=== PATIENT | male | born 1955 | race Caucasian/White ===

== ENCOUNTER 2016-06-15 12:55 | Outpatient (CLI) | payer OTHER | END 2016-06-15 12:56 | disposition home or self-care (01) | DX: M47.812 Spondylosis without myelopathy or radiculopathy, cervical region (principal); M50.81 Other cervical disc disorders, high cervical region ==

== ENCOUNTER 2017-04-29 16:32 | Outpatient (CLI) | payer OTHER ==
--- NOTE | 2017-04-30 16:56 | MRI Report ---
EXAM: MRI LUMBAR SPINE WITHOUT CONTRAST EXAM DATE: 04/29/2017 04:45 PM. CLINICAL HISTORY: Left thigh and hip pain. Left knee numbness. Left leg weakness. Lumbar spine pain. Previous lumbar spine surgery 9 years ago. COMPARISON: None. TECHNIQUE: Multiplanar, multisequence T1-weighted and fluid-sensitive sequences of the lumbar spine f rom T12 to S1 without contrast. Other: None. FINDINGS: Spinal Cord: The conus terminates at mid L1. The conus medullaris and cauda equina are unremarkable. Alignment: Grade 1 retrolisthesis at L3-L4 by approximately 5 mm. Mild levoconvex scoliosis centered at the L4-L5 level. Bone Marrow: Five wpd-jym-wgxuhsb lumbar vertebral bodies are assumed. There is an approximately 8 x 5 mm hypointense lesion at the right side of the S1 sacral segment which most likely represents a bon e island. No gross fractures. Disk Levels/Facets: L5-S1: Minimal disk bulge. Posterior annular fissure. Moderate facet arthropathy. Mild to moderate le ft subarticular zone stenosis. No foraminal stenoses. L4-L5: Right-sided degenerative endplate changes. Mild left-sided and moderate to severe right-sided disk space narrowing. Small diffuse disk bulge. Previous laminectomy. Mild to moderate right facet ar thropathy. Mild left and rpkl-hn-rzmvtvli right foraminal stenoses. L3-L4: Small posterior disk bulge. Small left foraminal and extraforaminal disk protrusion. Mild face t arthropathy. Small facet joint effusions. Moderate foraminal stenoses. L2-L3: Unremarkable. L1-L2 and T12-L1: Unremarkable. Musculature: Normal. No edema or fatty atrophy. Other: There is a 2.2 x 1.8 cm cyst at the right kidney. IMPRESSION: 1. Multilevel degenerative disk changes, osteophytosis, and facet arthropathy. The more significant l evels are at L3-L4 and L4-L5. 2. Small posterior disk bulge and small left foraminal and extraforaminal disk protrusion at L3-L4. M oderate foraminal stenoses. 3. Small diffuse disk bulge at L4-L5. Previous laminectomy. Mild left and kdtc-ho-wuytngrf right fora karrie stenoses. 4. Grade 1 retrolisthesis at L3-L4. Mild levoconvex scoliosis of the lower lumbar spine. Comment: The following findings are so common in adults without low back pain that while we report th eir presence, they must be interpreted with caution and in the context of the clinical situation. (Re lisa Carmona et al, Spine 2001) Prevalence of findings in patients without low back pain: Disk degeneration (any evidence): 92% Disk desiccation/T2 signal loss: 83% Disk height loss: 56% Disk bulge: 64% Disk protrusion: 32% Annular tear/high intensity zone: 38% [facility] Referring Provider Line: [phone] SITE ID: [id number]
== END 2017-04-29 16:33 | disposition home or self-care (01) ==
LOC: DI 16:32
PROVIDERS: ATTEND Physical Medicine & Rehabilitation
DX: M51.26 Other intervertebral disc displacement, lumbar region (principal); M47.896 Other spondylosis, lumbar region; M51.36 Other intervertebral disc degeneration, lumbar region; M43.16 Spondylolisthesis, lumbar region; M41.86 Other forms of scoliosis, lumbar region
CPT/HCPCS: 72148

== ENCOUNTER 2018-06-13 10:38 | Outpatient (CLI) | payer OTHER | END 2018-06-13 10:39 | disposition home or self-care (01) | LOC: SC 10:38 | PROVIDERS: ATTEND Internal Medicine Pulmonary Disease | DX: G47.33 Obstructive sleep apnea (adult) (pediatric) (principal); E66.9 Obesity, unspecified; Z68.34 Body mass index [BMI] 34.0-34.9, adult | CPT/HCPCS: 99203; 99212 ==

== ENCOUNTER 2018-07-24 08:12 | Emergency (ER) | payer OTHER ==
--- NOTE | 2018-07-24 08:39 | ED Physician Documentation ---
PD HPI UPPER EXT INJURY - Stated complaint Stated Complaint: L MID FINGER INJ - History obtained from History obtained from: Patient - History of Present Illness Location: Left, Finger (he was lifting heavy object and had middle finger at a corner, and felt a pain while lifting. So finger was being pressured/bent at the time, in flexion position.) Timing - onset: Yesterday Worsened by: Moving, Palpating Associated symptoms: No: Weakness (he can flex and extend, just hurts with movement.) Similar symptoms before: Has not had sx before Review of Systems Skin: denies: Abrasion (s), Laceration (s) Neurologic: denies: Focal weakness, Numbness PD PAST MEDICAL HISTORY - Past Medical History Cardiovascular: Hypertension, High cholesterol Respiratory: COPD, Sleep apnea, CPAP use Endocrine/Autoimmune: None GI: GERD : None HEENT: None Psych: None Musculoskeletal: Osteoarthritis Derm: None - Past Surgical History Ortho: Spine surgery - Present Medications Home Medications: Ambulatory Orders Medication Instructions Recorded Confirmed Albuterol Sulfate [Proair Hfa 1 - 2 puffs INH Q4H PRN 06/03/17 06/03/17 Inhaler] Amlodipine Besylate 10 mg PO DAILY 06/03/17 06/03/17 Budesonide/Formoterol Fumarate 2 puffs IH ONCE 06/03/17 06/03/17 [Symbicort 160-4.5 Mcg Inhaler] Desmopressin Acetate 0.1 mg PO DAILY 06/03/17 06/03/17 Hydrocortisone 1 tab ORAL DAILY 06/03/17 06/03/17 Levothyroxine Sodium 1 tab ORAL DAILY 06/03/17 06/03/17 Lisinopril 40 mg PO DAILY 06/03/17 06/03/17 Meloxicam 1 tab ORAL DAILY 06/03/17 06/03/17 Omeprazole 1 tab ORAL DAILY 06/03/17 06/03/17 Simvastatin 20 mg PO DAILY 06/03/17 06/03/17 Tiotropium [place] [Spiriva] 1 inhaler IH DAILY 06/03/17 06/03/17 - Allergies Allergies/Adverse Reactions: Allergies Allergy/AdvReac Type Severity Reaction Status Date / Time latex Allergy Rash Verified 06/03/17 12:17 PD ED PE NORMAL - Vitals Vital signs reviewed: Yes - General General: Alert and oriented X 3, No acute distress, Well developed/nourished - Derm Derm: Normal color - Extremities Extremities: Other (left middle finger finger at the MCP joint with some swelling and tenderness palmar aspect. He is able to flex at IP joints. ) - Neuro Neuro: No motor deficit, No sensory deficit Results - Vitals Vitals: Oxygen O2 Source Room air - Rads (name of study) fingers Radiology: Prelim report reviewed (no fractures) PD MEDICAL DECISION MAKING - ED course Complexity details: reviewed results (xrays without fracture), considered differential, d/w patient Departure - Departure Disposition: 01 Home, Self Care Clinical Impression: Finger sprain Qualifiers: Encounter type: initial encounter Finger: middle finger Sprain of finger site: metacarpophalangeal joint Laterality: left Qualified Code(s): S63.653A - Sprain of metacarpophalangeal joint of left middle finger, initial encounter Condition: Stable Record reviewed to determine appropriate education?: Yes Instructions: ED Sprain Finger Follow-Up: Amy García ARNP [Primary Care Provider] - Comments: No fracture seen on x-ray. Presume it some sprain of the tendons and ligaments. I have use the finger splint for comfort over the next several days. Tylenol ibuprofen or Aleve if needed for pains. Elevate and rest the hand often to reduce the swelling. Recheck if not better over the next 3-5 days. Discharge Date/Time: 07/24/18 10:00
[2018-07-24 08:41] VITALS: BP 142/82
--- NOTE | 2018-07-24 10:10 | XRAY Report ---
Reason: LMF injury / attn MP joint Procedure Date: 07/24/2018 Accession Number: [id number] / [id number] Procedure: XR - Hand 2 View LT CPT Code: FULL RESULT: EXAM: LEFT HAND RADIOGRAPHY EXAM DATE: 07/24/2018 09:17 AM. CLINICAL HISTORY: LMF injury / attn MP joint. COMPARISON: None. TECHNIQUE: AP and lateral views of the left hand, oblique view of the left third digit. FINDINGS: Bones: No fractures or bone lesions. Joints: Unremarkable. Soft Tissues: Unremarkable. IMPRESSION: 1. No acute osseous abnormality. [facility]
== END 2018-07-24 10:00 | disposition home or self-care (01) ==
LOC: ED 08:12
DX: I10 Essential (primary) hypertension (principal); J44.9 Chronic obstructive pulmonary disease, unspecified; S63.653A Sprain of metacarpophalangeal joint of left middle finger, initial encounter; X50.1XXA Overexertion from prolonged static or awkward postures, initial encounter; X50.9XXA Other and unspecified overexertion or strenuous movements or postures, initial encounter; X50.0XXA Overexertion from strenuous movement or load, initial encounter; Y93.89 Activity, other specified
CPT/HCPCS: 99283

== ENCOUNTER 2018-07-25 09:03 | Outpatient (CLI) | payer OTHER | END 2018-07-25 09:04 | disposition home or self-care (01) | LOC: SC 09:03 | PROVIDERS: ATTEND Internal Medicine Pulmonary Disease | DX: G47.33 Obstructive sleep apnea (adult) (pediatric) (principal) | CPT/HCPCS: 99212; 99213 ==

== ENCOUNTER 2019-07-12 10:30 | Outpatient (CLI) | payer OTHER ==
[2019-07-14 18:12] VITALS: BP 130/60
--- NOTE | 2019-07-14 18:12 | SLEEP CARE CONSULTATION ---
Information from patient questionnaire entered by Susy Hector. I have reviewed and concur with the information entered by Susy Hector. This document represents the service I personally performed and the decisions made by me, Amy Jacobo, RN, MSN, WASHING MACHINE STRIPER. History of Present Illness Previous diagnosis: Moderate, Obstructive Sleep Apnea-Hypopnea Syndrome AHI: 13 Reason for follow up: annual (last seen 2019) Equipment type: CPAP Equipment obtained from: [employer] Mask style: Full face (Air Fit) Mask brand: Resmed Backup mask available: Yes (old mask ) CPAP Compliance Data - Data Reviewed with Patient Average duration of nightly device use: 8.1 Compliance rate %: 98 (180 days) Current pressure setting (cmH2O): 14-18 Humidity settin Average residual AHI: 1.7 Average large leak: 1.3 liters per minute Subjective Patient concerns: reports: nasal congestion, other (wakes with hose around neck most nights - which wakes him to readjust). denies: aerophagia, mask discomfort, air blowing in eyes, mask leak noise, condensation in mask/hose, dry mouth, nose, throat, epistaxis Observed to snore while using device: Yes (slightly) Current pressure setting perceived as: too high (occasionally causing chest discomfort- relieved with inhaler - last time a few months ago) On therapy, patient: reports: sleeping better, awakening more refreshed, being more awake and alert during the day, more rested overall. denies: drowsiness while driving Initial [place] Sleepiness Scale score: 9 Current [place] Sleepiness Scale score: 14 (increased fatigue from 24/7 hospice care of mother in law) Allergies and Home Medications Known drug allergies: Yes (latex , environmental) Home medication list reviewed: Yes (reduced dose of citalopram ) Allergy and home medication list: Medication List Medication Name (generic/name brand) Strength & Dosage Symbicort 160/4.5 Two puffs twice daily Spiriva HandiHaler One puff in the morning Proair HFA Use as needed Gabapentin 300mg cap one three times daily Citalopram Hydrobromide 10mg tab one daily Thyroxine 100mcg tab one daily Hydrocortisone 20mg tab one am and at lunch Testosterone Injection 250mg once every three weeks Desmopressin Acet 0.1mg tab two twice daily Lisinopril 40mg tab one daily Amlodipine 10mg tab one daily Simvastatin 20mg tab one daily at bedtime Omeprazole 20mg cap one twice daily before meals Vitamin D3 2000IU tab daily Vitamin B-12 2500mcg tab one daily Review of Systems Review of systems same as previous: Yes Physical Exam Blood Pressure: 130/60 Cuff size: long Heart Rate: 85 O2 Saturation: 98 Height: 5 ft 8.5 in Weight: 235 lb Body Mass Index: 35.2 BMI Classification: Obese Impression and Plan 1. Obstructive Sleep Apnea-Hypopnea Syndrome, moderate, with good treatment compliance and good apnea control. On CPAP therapy, the patient has better sleep quality and is more rested overall. For comfort of air pressure, I will slightly reduce the top setting of his CPAP range to reduce incidence of chest pressure when at higher setting to [id number]. He is to contact me if pressure change insufficient or uncomfortable. Patient reluctant to reduce pressure initially after explanation of goal is to reduce apnea comfortably, he agreed. Methods to keep hose out of way to sleep discussed. One method is to place the hose behind pillow or over headboard of bed. There is also a hose palmer pole that can be placed under the mattress and bought online. Patient has maintained weight. Currently patients BMI is 34.4 obesity class . Obesity increases the risk of apnea, CPAP pressure requirements and overall health risks especially cardiovascular and diabetes. Thus patient is advised to consider to lose weight. Weight loss can be done with reducing portion size, reducing refined foods and balancing content with vegetables, fruit and protein. In addition tracking food intake will allow awareness of how to modify diet to achieve weight loss goals. Also eating more slowly will allow more awareness of food intake and enjoyment of food while assisting patient to modify intake at each meal. A diet consultation can be helpful in achieving optimal weight loss goals. The BMI chart was reviewed. The patient would like to reduce to 165 pounds bringing their BMI down to about 24.7. Patient encouraged to discuss their weight loss goals with their PCP and consider a referral to a optical designer. The patient's CPAP pressure range should accommodate some weight loss. Symptoms to report for additional pressure adjustment discussed. Patient's apnea severity and rationale for treatment to reduce apnea, improve sleep quality and reduce cardiovascular and cerebrovascular events was reviewed. I also reviewed the benefit of consistent device use of CPAP for hypertension, gastric reflux, depression/anxiety . * * Change CPAP pressure to 14-17 cmH2O * consider hose palmer * Notify me if snoring with mask or feeling that the pressure is too much or too little * Attempt to lose weight * Call this office if any problems using CPAP * Return for follow up in 2 months to meet his Medicare eligibility , or sooner if concerns arise Counseling Topics: Spare mask, Weight loss health impact, Discuss weight with PCP Time Spent with Patient (minutes): 30 I spent 100% of this visit face to face with the patient with greater than 50% of this was spent time counseling the patient and coordination of care.
== END 2019-07-12 10:31 | disposition home or self-care (01) ==
LOC: SC 10:30
PROVIDERS: ATTEND Nurse Practitioner Family
DX: G47.33 Obstructive sleep apnea (adult) (pediatric) (principal); E66.9 Obesity, unspecified; Z68.35 Body mass index [BMI] 35.0-35.9, adult
CPT/HCPCS: 99212; 99214

== ENCOUNTER 2019-08-28 12:54 | Outpatient (CLI) | payer MEDICARE, OTHER ==
--- NOTE | 2019-08-28 09:25 | SLEEP CARE CONSULTATION ---
Information from patient questionnaire entered by Lauren Lennon. I have reviewed and concur with the information entered by Lauren Lennon. This document represents the service I personally performed and the decisions made by me, Amy Jacobo, RN, MSN, LABORER ADJUSTABLE STEEL JOIST. History of Present Illness Previous diagnosis: Moderate, Obstructive Sleep Apnea-Hypopnea Syndrome AHI: 13 Reason for follow up: first compliance, other (since transition to Medicare - diagnosed in 2005 - last device updated in 2019 ) Equipment type: CPAP Equipment obtained from: [facility] Mask style: Full face Backup mask available: Yes Last cushion change: 3 days ago Prior sleep studies: Yes CPAP Compliance Data - Data Reviewed with Patient Average duration of nightly device use: 8h 27m Compliance rate %: 98 Current pressure setting (cmH2O): 14-18 Average residual AHI: 1.2 (at 95th percentile pressure of 16.9) Subjective Patient concerns: reports: air blowing in eyes (noted only when needs to change mask ), mask leak noise. denies: aerophagia, mask discomfort, condensation in mask/hose, nasal congestion, dry mouth, nose, throat, epistaxis Observed to snore while using device: Yes (slight ) Current pressure setting perceived as: comfortable On therapy, patient: reports: sleeping better, awakening more refreshed, being more awake and alert during the day, more rested overall. denies: drowsiness while driving Initial [place] Sleepiness Scale score: 9 Allergies and Home Medications Known drug allergies: Yes Home medication list reviewed: No (no changes since last ) Review of Systems Review of systems same as previous: Yes Physical Exam Height: 5 ft 8.5 in Weight: 230 lb (home weight) Body Mass Index: 34.4 BMI Classification: Obese Impression and Plan 1. Obstructive Sleep Apnea-Hypopnea Syndrome, mild, with good treatment compliance and good apnea control. On CPAP therapy, the patient has better sleep quality and is more rested overall. Patient has been using CPAP since 2005 and last updated his device in 2019. This was his first compliance visit since transitioning to Medicare. He is currently having no difficulties in using the device and is receiving his equipment as needed from [facility]. Patient's apnea severity and rationale for treatment to reduce apnea, improve sleep quality. He has slight snoring noted intermittently by spouse. I explained to patient how this could be present at lower pressures with rationale explained. I explained how his snoring can be reduced with increasing his pressure range but he would like to stay at the same pressure and not have it raised at this time. Patient is pleased with the benefit of CPAP therapy and unable to sleep without it. Annual follow up process explained. Patient agreed to have his insurance billed for this telemedicine visit of 10 minutes. * Continue CPAP pressure at 14-18 cmH2O * Notify me if snoring with mask or feeling that the pressure is too much or too little * Call this office if any problems using CPAP * Return for follow up in 1 year , or sooner if concerns arise. Visit Type: Telehealth Phone Time Spent with Patient (minutes): 10 Provider Statement: I spent 100% of the Telehealth Phone Call with the patient with greater than 50% spent counseling the patient and coordination of care.
== END 2019-08-28 12:55 | disposition home or self-care (01) ==
LOC: SC 12:54
PROVIDERS: ATTEND Nurse Practitioner Family
DX: G47.33 Obstructive sleep apnea (adult) (pediatric) (principal); E66.9 Obesity, unspecified; Z68.34 Body mass index [BMI] 34.0-34.9, adult

== ENCOUNTER 2019-10-12 16:16 | Emergency (ER) | payer MEDICARE, OTHER ==
--- NOTE | 2019-10-12 17:09 | ED Physician Documentation ---
History of Present Illness - Stated complaint Stated Complaint: RT LEG SWELLING/PAIN - Chief complaint Chief Complaint: Ext Problem - History obtained from History obtained from: Patient - Additonal information Additional information: Patient comes emergency department complaining of pain in his right calf that started a few days ago. Patient states that he has a long standing edema in his lower extremities that has been there for "years". However, patient states he has been doing a lot of sitting around over the last 9 months or so since his itsfse-aa-qad was placed on hospice. He states that he and his take care of her, and that he is not as active as he used to be because of this. Patient states he began to notice what seemed like a "lump" in his right calf and that this felt painful. It spread now up into his hamstring area. Patient denies any strain or other injury to the area. He has no history of DVT previously. Patient denies shortness of breath or chest pain. No other complaints at this time. Review of Systems Ten Systems: 10 systems reviewed and negative Constitutional: reports: Reviewed and negative Eyes: reports: Reviewed and negative Ears: reports: Reviewed and negative Nose: reports: Reviewed and negative Throat: reports: Reviewed and negative Cardiac: reports: Reviewed and negative Respiratory: reports: Reviewed and negative GI: reports: Reviewed and negative : reports: Reviewed and negative Skin: reports: Reviewed and negative Musculoskeletal: reports: Extremity swelling Neurologic: reports: Reviewed and negative Psychiatric: reports: Reviewed and negative Endocrine: reports: Reviewed and negative Immunocompromised: reports: Reviewed and negative PD PAST MEDICAL HISTORY - Past Medical History Cardiovascular: Hypertension, High cholesterol Respiratory: COPD, Sleep apnea, CPAP use Endocrine/Autoimmune: None GI: GERD : None HEENT: None Psych: None Musculoskeletal: Osteoarthritis Derm: None - Past Surgical History Ortho: Spine surgery - Present Medications Home Medications: Ambulatory Orders Medication Instructions Recorded Confirmed Albuterol Sulfate [Proair Hfa 1 - 2 puffs INH Q4H PRN 06/03/17 10/12/19 Inhaler] Amlodipine Besylate 10 mg PO DAILY 06/03/17 10/12/19 Budesonide/Formoterol Fumarate 2 puffs IH BID 06/03/17 10/12/19 [Symbicort 160-4.5 Mcg Inhaler] Desmopressin Acetate 2 tab PO BID 06/03/17 10/12/19 Hydrocortisone 20 mg PO DAILY 06/03/17 10/12/19 Levothyroxine Sodium 100 mcg PO DAILY 06/03/17 10/12/19 Omeprazole 20 mg ORAL BID 06/03/17 10/12/19 Simvastatin 20 mg PO DAILY PM 06/03/17 10/12/19 Tiotropium [place] [Spiriva] 1 inhaler IH DAILY 06/03/17 10/12/19 lisinopriL [Lisinopril] 40 mg PO DAILY 06/03/17 10/12/19 Cholecalciferol (Vitamin D3) 2,000 unit PO DAILY 10/12/19 10/12/19 [Vitamin D] Citalopram Hydrobromide 10 mg PO DAILY 10/12/19 10/12/19 [Citalopram HBr] Cyanocobalamin (Vitamin B-12) 2,500 mcg PO DAILY 10/12/19 10/12/19 [Vitamin B-12] Gabapentin [Neurontin] 300 mg PO TID 10/12/19 10/12/19 Hydrocortisone 10 mg PO QDLUNCH 10/12/19 10/12/19 Testosterone Cypionate 250 mg IM ONCE 10/12/19 10/12/19 [Depo-Testosterone] - Allergies Allergies/Adverse Reactions: Allergies Allergy/AdvReac Type Severity Reaction Status Date / Time latex Allergy Rash Verified 10/12/19 16:28 - Social History Does the pt smoke?: No Smoking Status: Former smoker PD ED PE NORMAL - Vitals Vital signs reviewed: Yes - General General: Alert and oriented X 3, No acute distress - HEENT HEENT: Atraumatic, PERRL, EOMI, Moist mucous membranes - Neck Neck: Supple, no meningeal sign - Cardiac Cardiac: RRR, No murmur, Strong equal pulses - Respiratory Respiratory: No respiratory distress, Clear bilaterally - Abdomen Abdomen: Soft, Non tender, Non distended - Derm Derm: Normal color, Warm and dry, No rash - Extremities Extremities: No deformity, Other (Patient has moderate, 2+ pitting edema in his bilateral lower extremities, right greater than left. He has no palpable cord or mass in his right calf.) - Neuro Neuro: Alert and oriented X 3, Other (Grossly normal) - Psych Psych: Normal mood, Normal affect Results - Vitals Vitals: Vital Signs - 24 hr 10/12/19 10/12/19 16:23 18:23 Temperature 36.8 C Heart Rate 83 71 Respiratory 14 18 Rate Blood Pressure 178/89 H 143/69 H O2 Saturation 95 93 Oxygen O2 Source Room air - Rads (name of study) RLE US Radiology: Final report received, See rad report (Neg DVT) PD MEDICAL DECISION MAKING - ED course Complexity details: reviewed results, re-evaluated patient, considered differential, d/w patient ED course: Patient was worked up with ultrasound of his right lower extremity.Ultrasound did not show any evidence of a DVT. I discussed with the patient that his symptoms are benign. We have discussed home management and possible need for follow-up. We have also discussed the usual indications for return. Departure - Departure Disposition: 01 Home, Self Care Clinical Impression: Dependent edema Pain of lower extremity Qualifiers: Laterality: right Qualified Code(s): M79.604 - Pain in right leg Condition: Stable Instructions: ED Muscle Pain Leg Cramps Comments: Your ultrasound does not show any blood clot. Most likely, you have a muscle spasm pain, which will resolve on its own. You may try doing some gentle exercises or stretching to help with this.Please also elevate your legs at home to help drain out some of the fluid.
[2019-10-12 18:25] VITALS: BP 143/69
--- NOTE | 2019-10-12 18:29 | Ultrasound Report ---
Reason: RLE pain/swelling Procedure Date: 10/12/2019 Accession Number: [id number] / [id number] Procedure: US - Duplex Ext Veins Right CPT Code: Final Report FULL RESULT: EXAM: RIGHT LOWER EXTREMITY VENOUS ULTRASOUND EXAM DATE: 10/12/2019 05:53 PM. CLINICAL HISTORY: RLE pain/swelling. COMPARISON: None. TECHNIQUE: Real-time sonographic vascular imaging was performed by the iron launder operator through the lower extremity utilizing both color-flow and Doppler spectral analysis. Multiple community representative static images were saved for review. FINDINGS: Common Femoral Vein (CFV): Normal. CFV-GSV Junction: Normal. Profunda Femoral Vein (PFV): Normal. Femoral Vein (FV) Prox: Normal. Femoral Vein (FV) Mid: Normal. Femoral Vein (FV) Dist: Normal. Popliteal Vein: Normal. Posterior Tibial Veins: Limited assessment, although visualized portion appears unremarkable. Peroneal Veins: Limited assessment, although visualized portion appears unremarkable. Other: A fluid collection appears present at the report of the anterior aspect of the knee measuring approximately 2.7 x 4 x 0.8 cm. Fluid appears relatively anechoic. IMPRESSION: 1. Limited assessment of the posterior tibial and peroneal veins. Otherwise, no sonographic evidence of DVT in the right lower extremity. 2. A fluid collection at the reported anterior aspect of the knee is present measuring approximately 2.7 x 4 x 0.8 cm. Exact location for this collection of fluid is uncertain, although appears to extend deep to the musculature. The fluid appears relatively anechoic. A knee joint effusion may have this appearance. Correlate with clinical assessment. [facility]
== END 2019-10-12 18:38 | disposition home or self-care (01) ==
LOC: ED 16:16
DX: M79.604 Pain in right leg (principal); R60.0 Localized edema; I10 Essential (primary) hypertension; Z87.891 Personal history of nicotine dependence
CPT/HCPCS: 99284

== ENCOUNTER 2020-09-23 14:00 | Outpatient (CLI) | payer MEDICARE, OTHER ==
--- NOTE | 2020-09-23 15:35 | SLEEP CARE CONSULTATION ---
Information from patient questionnaire entered by Susy Hector. I have reviewed and concur with the information entered by Susy Hector. This document represents the service I personally performed and the decisions made by me, Cristobal Bell MD, [facility]. History of Present Illness Service Date and Time: 09/23/2020 1400 Previous diagnosis: Moderate, Obstructive Sleep Apnea-Hypopnea Syndrome AHI: 13 (in 2005) Reason for follow up: annual (last seen 08/2019) Equipment type: CPAP Equipment obtained from: [employer] Mask style: Full face Prior sleep studies: Yes Year and Where: 2005 - [facility] Type of Sleep Study: Polysomnography HPI additional information: HPI: Mr. Hogue returned today for follow up of nasal CPAP therapy. He was diagnosed to have mild obstructive sleep apnea-hypopnea syndrome. The patient wears a ResMed AirTouch F-20 full face mask size medium. [employer] is his durable medical supplier. He reports using the device nightly and all through the night. The compliance report shows usage in 180 nights out of the 180 nights, averaging 8.3 hours a night. He complained of no particular problem with the device such as soreness on the face, dry nose, epistaxis, nasal congestion or headache. He thinks that the pressure of 14 -18 cmH2O is comfortable (his old machine is set on 16 cmH2O). On the CPAP therapy he notices improvement in his sleep quality, and that he wakes up feeling fresher in the morning and more awake/alert during the day. The [place] Sleepiness Scale score 9. The average residual AHI is 2.5; and air leak, 0.3 L/min. The 90th percentile pressure is 16.4 cmH2O. Sleep Study - Results Prior sleep studies: Yes CPAP Compliance Data - Data Reviewed with Patient Average duration of nightly device use: 8 hr 16 min Compliance rate %: 99 (90 days(05/11/20 - 08/08/20) Current pressure setting (cmH2O): 14-18 Humidity settin Average residual AHI: 2.1 Subjective Missed days of use due to: reports: travel Current pressure setting perceived as: comfortable Initial [place] Sleepiness Scale score: 9 (in 2019) Current [place] Sleepiness Scale score: 9 Allergies and Home Medications Drug allergies reviewed: Yes Home medication list reviewed: Yes Review of Systems Review of systems same as previous: Yes Physical Exam Height: 5 ft 8 in Weight: 192 lb Weight change since last visit: -36 Body Mass Index: 29.2 BMI Classification: Overweight Impression and Plan IMPRESSION: 1. Obstructive Sleep Apnea-Hypopnea Syndrome, mild, with the patient doing well on nasal CPAP therapy. He has excellent compliance and significant clinical improvement. The current pressure appears effective and comfortable. Overall, he is very satisfied with treatment and plans to continue with it long- term. No adjustment is necessary today. PLAN: 1. Leave autoCPAP to 14 -18 cmH2O. 2. Try to lose weight 3. Try ResMed AirTouch F-20 full face mask and Respironics DreamWear full face mask. 4. Return in one year for follow up or earlier if there is any problem with the treatment. Follow up recommended for: Weight management Visit Type: In Office Time Spent with Patient (minutes): 15 Provider Statement: I spent 100% of the Face to Face Visit with the patient with greater than 50% spent counseling the patient and coordination of care.
== END 2020-09-23 14:01 | disposition home or self-care (01) ==
LOC: SC 14:00
PROVIDERS: ATTEND Internal Medicine Pulmonary Disease
DX: G47.33 Obstructive sleep apnea (adult) (pediatric) (principal); E66.3 Overweight; Z68.29 Body mass index [BMI] 29.0-29.9, adult
CPT/HCPCS: 99212; G0463

== ENCOUNTER 2020-12-17 14:32 | Emergency (ER) | payer MEDICARE, OTHER ==
[2020-12-17 14:43] VITALS: BP 140/80
[2020-12-17] MEDS ORDERED: KETOROLAC 15 MG/ML VIAL IM STA (15:05)
--- NOTE | 2020-12-17 15:08 | ED Physician Documentation ---
History of Present Illness - Stated complaint Stated Complaint: L SIDE SHOULDER/NECK PX - Chief complaint Chief Complaint: Ext Problem - History obtained from History obtained from: Patient - Additonal information Additional information: 65-year-old gentleman with chronic back pain was helping his brother pain to house and was painting for about 12 hours with us prior 4 days ago. That night had muscle aches all over which then resolved the next morning but has persistent left-sided neck pain ever since without weakness, numbness, tingling, saddle anesthesia, incontinence, fevers. It is worse if he turns his head. Review of Systems Constitutional: denies: Fever, Chills Cardiac: denies: Chest pain / pressure, Palpitations Respiratory: denies: Dyspnea, Cough PD PAST MEDICAL HISTORY - Past Medical History Cardiovascular: Hypertension, High cholesterol Respiratory: COPD, Sleep apnea, CPAP use Endocrine/Autoimmune: None GI: GERD : None HEENT: None Psych: None Musculoskeletal: Osteoarthritis Derm: None - Past Surgical History Past Surgical History: Yes Ortho: Spine surgery - Present Medications Home Medications: Ambulatory Orders Medication Instructions Recorded Confirmed Albuterol Sulfate [Proair Hfa 1 - 2 puffs INH Q4H PRN 06/03/17 10/12/19 Inhaler] Amlodipine Besylate 10 mg PO DAILY 06/03/17 10/12/19 Budesonide/Formoterol Fumarate 2 puffs IH BID 06/03/17 10/12/19 [Symbicort 160-4.5 Mcg Inhaler] Desmopressin Acetate 2 tab PO BID 06/03/17 10/12/19 Hydrocortisone 20 mg PO DAILY 06/03/17 10/12/19 Levothyroxine Sodium 100 mcg PO DAILY 06/03/17 10/12/19 Omeprazole 20 mg ORAL BID 06/03/17 10/12/19 Simvastatin 20 mg PO DAILY PM 06/03/17 10/12/19 Tiotropium [place] [Spiriva] 1 inhaler IH DAILY 06/03/17 10/12/19 lisinopriL [Lisinopril] 40 mg PO DAILY 06/03/17 10/12/19 Cholecalciferol (Vitamin D3) 2,000 unit PO DAILY 10/12/19 10/12/19 [Vitamin D] Citalopram Hydrobromide 10 mg PO DAILY 05/21/20 05/21/20 [Citalopram HBr] Cyanocobalamin (Vitamin B-12) 2,500 mcg PO DAILY 10/12/19 10/12/19 [Vitamin B-12] Gabapentin [Neurontin] 300 mg PO TID 10/12/19 10/12/19 Hydrocortisone 10 mg PO QDLUNCH 10/12/19 10/12/19 Testosterone Cypionate 250 mg IM ONCE 10/12/19 10/12/19 [Depo-Testosterone] Gabapentin [Neurontin] 600 mg PO TID #30 tablet 12/17/20 Oxycodone HCl/Acetaminophen 1 - 2 each PO Q6H PRN #14 tablet 12/17/20 [Percocet 5-325 mg Tablet] predniSONE [Deltasone] 20 mg PO [id number] #21 tab 12/17/20 - Allergies Allergies/Adverse Reactions: Allergies Allergy/AdvReac Type Severity Reaction Status Date / Time latex Allergy Rash Verified 12/17/20 14:35 - Social History Does the pt smoke?: No Smoking Status: Former smoker Does the pt drink ETOH?: Yes Does the pt have substance abuse?: No - Immunizations Immunizations: TDAP >10years/unknown PD ED PE NORMAL - Vitals Vital signs reviewed: Yes - General General: Alert and oriented X 3, No acute distress - Neck Neck: No bony TTP, Other (Muscular tenderness of the left posterior sternocleidomastoid) - Extremities Extremities: Other (Equal bilateral consulting sales executive strength, thumb extension, interosseous strength, and sensation throughout the upper extremities.) - Neuro Neuro: Alert and oriented X 3, Normal speech Results - Vitals Vitals: Vital Signs - 24 hr 12/17/20 14:42 Temperature 36.5 C Heart Rate 80 Respiratory 16 Rate Blood Pressure 140/80 H O2 Saturation 98 Oxygen O2 Source Room air PD MEDICAL DECISION MAKING - ED course ED course: The patient has equal and normal Achilles and patellar reflexes bilaterally. Normal sensation in all areas of the legs. Patient denies saddle anesthesia. Normal strength in flexion-extension at the ankles, knees, and flexion of the hips. I am prescribing a short course of short-acting opioid pain medication for this patient. 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 I have discussed that the opioids are for short term therapy only, and will not be refilled from the ED. Departure - Departure Disposition: 01 Home, Self Care Clinical Impression: Neck pain Condition: Good Record reviewed to determine appropriate education?: Yes Instructions: ED Neck Pain No Trauma Prescriptions: predniSONE [Deltasone] 20 mg PO [id number] #21 tab Gabapentin [Neurontin] 600 mg PO TID #30 tablet Oxycodone HCl/Acetaminophen [Percocet 5-325 mg Tablet] 1 - 2 each PO Q6H PRN #14 tablet PRN Reason: pain Comments: Keep an eye on your blood sugars while on the steroids, if they go above may be 250 or 300 you should simply stop the steroids. I am doubling her gabapentin. Make sure not to take your usual dose while on it, the steroid is prednisone. If not better in a few weeks talk with your doctor or Dr. Gloria about an MRI of your neck. Continue your usual dose of steroids while on the prescription steroid in addition to that. I am prescribing a short course of narcotic pain medication for you. These are potentially dangerous and addictive medications that should be used carefully. These medications may constipate you. Take an ahzo-rwh-qvxczyh stool softener (docusate) twice daily with plenty of water while taking these medications. If you go 24 hours without a bowel movement, take vqgd-fev-nnutjcf miralax, per package instructions. Do not drink or drive while taking these medications. If you received narcotic or sedating medications while in the emergency department, do not drive for 24 hours. Store this medication in a safe, secure place and out of reach of children. It is a violation of federal law to give or sell this medication to another person or to use in a manner other than prescribed. The ED will not refill narcotic prescriptions, including prescriptions lost or stolen. To dispose of unwanted medications: 1. [facility] at [address] in [place] has a medication drop box. They accept prescription medications (in pill form) Wednesday through Wednesday 9:00 a.m. to 5:00 p.m. 2. The [facility] accepts prescription medications (in pill form only) for disposal year round. Call for more information. 3. Contact the [facility] for the next [facility] sponsored prescription drug collection event. , [phone], or [phone]; Note that many narcotic pain relievers also contain Tylenol/acetaminophen. Please ensure that your total dose of acetaminophen from all sources does not exceed 3 g (3000 mg) per day.
== END 2020-12-17 15:20 | disposition home or self-care (01) ==
LOC: ED 14:32
DX: M54.2 Cervicalgia (principal); Z87.891 Personal history of nicotine dependence
CPT/HCPCS: 96372; 99283

== ENCOUNTER 2021-11-17 09:37 | Outpatient (CLI) | payer MEDICARE, OTHER ==
[2021-11-17 10:17] VITALS: BP 140/87
--- NOTE | 2021-11-17 10:17 | SLEEP CARE CONSULTATION ---
Information from patient questionnaire entered by Everton Sorensno MA. I have reviewed and concur with the information entered by Everton Sorenson MA. This document represents the service I personally performed and the decisions made by me, Cristobal Bell MD, [facility]. History of Present Illness Service Date and Time: 11/17/2021 0937 Previous diagnosis: Moderate, Obstructive Sleep Apnea-Hypopnea Syndrome AHI: 13 (in 2005) Reason for follow up: annual (LAST SEEN 09/23/2021, RESMED, DELATORRE 06/2018, ) Equipment type: CPAP Equipment obtained from: [employer] Mask style: Full face Prior sleep studies: Yes Year and Where: 2005 - [facility] Type of Sleep Study: Polysomnography HPI additional information: Mr. Hogue returned today with his Sara for an annual follow up of nasal CPAP therapy. He was diagnosed to have mild obstructive sleep apnea-hypopnea syndrome. The patient wears a ResMed F-20 full face mask size medium (he switched back from the AirTouch). [employer] is his durable medical supplier. He reports using the device nightly and all through the night. The compliance report shows usage in 354 nights out of the 365 nights, averaging 8 hours a night. He complained of no particular problem with the device such as soreness on the face, dry nose, epistaxis, nasal congestion or headache. He thinks that the pressure of 14 -18 cmH2O is comfortable (his old machine is set on 16 cmH2 O). On the CPAP therapy he notices improvement in his sleep quality, and that he wakes up feeling fresher in the morning and more awake/alert during the day. The [place] Sleepiness Scale score 10. The average residual AHI is 1.8; and air leak, 0.9 L/min. The 90th percentile pressure is 15.9 cmH2O. His ResMed AirSense 10 is less than 2 years old. Sleep Study - Results Type of Sleep Study: Polysomnography Prior sleep studies: Yes Year and Where: 2005 - [facility] CPAP Compliance Data - Data Reviewed with Patient Average duration of nightly device use: 8 HOURS 1 MINUTE Compliance rate %: 98 (05/21/2021-11/16/2021) Current pressure setting (cmH2O): 14-18 Average residual AHI: 1.9 Central apnea: .8 Obstructive apnea: .3 Hypopnea: .7 Average large leak: .6 Subjective Initial [place] Sleepiness Scale score: 9 (in 2019) Current [place] Sleepiness Scale score: 10 (11/17/2021) Allergies and Home Medications Known drug allergies: Yes (LATEX) Drug allergies reviewed: Yes Home medication list reviewed: Yes Allergy and home medication list: Allergies latex Allergy (Verified 12/17/20 14:35) Rash Review of Systems Review of systems same as previous: Yes Physical Exam Vital signs obtained and entered by: CALLIE MARVIN Blood Pressure: 140/87 (PULSE 76, RESP 18, LEFT) Cuff size: wrist Heart Rate: 79 O2 Saturation: 97 (PAPER ASK) Height: 5 ft 8 in Weight: 200 lb (CLOTHES) Body Mass Index: 30.4 BMI Classification: Obese Impression and Plan IMPRESSION: 1. Obstructive Sleep Apnea-Hypopnea Syndrome, mild, with the patient doing well on nasal CPAP therapy. He has excellent compliance and significant clinical improvement. The current pressure appears effective and comfortable. Overall, he is very satisfied with treatment and plans to continue with it long- term. No adjustment is necessary today. PLAN: 1. Leave autoCPAP to 14 -18 cmH2O. 2. Try to lose weight 3. Return in one year for follow up or earlier if there is any problem with the treatment. Counseling Topics: Weight control Follow up with Sleep Care in: 1 year Visit Type: In Office Time Spent with Patient (minutes): 10 Provider Statement: I spent 100% of the Face to Face Visit with the patient with greater than 50% spent counseling the patient and coordination of care.
== END 2021-11-17 09:38 | disposition home or self-care (01) ==
LOC: SC 09:37
PROVIDERS: ATTEND Internal Medicine Pulmonary Disease
DX: G47.33 Obstructive sleep apnea (adult) (pediatric) (principal); E66.9 Obesity, unspecified; Z68.30 Body mass index [BMI] 30.0-30.9, adult
CPT/HCPCS: 99212; G0463

== ENCOUNTER 2022-11-30 09:26 | Outpatient (CLI) | payer MEDICARE, OTHER ==
--- NOTE | 2022-11-30 10:11 | SLEEP CARE CONSULTATION ---
Information from patient questionnaire entered by Shima Thakkar. I have reviewed and concur with the information entered by Shima Thakkar. This document represents the service I personally performed and the decisions made by me, Cristobal Bell MD, [facility]. History of Present Illness Service Date and Time: 11/30/2022 0926 Previous diagnosis: Moderate, Obstructive Sleep Apnea-Hypopnea Syndrome AHI: 13 (in 2005) Reason for follow up: annual (LAST SEEN 10/2021) Equipment type: CPAP (RESMED) Equipment obtained from: [employer] Mask style: Full face Prior sleep studies: Yes Year and Where: 2005 - [facility] Type of Sleep Study: Polysomnography HPI additional information: Mr. Hogue returned today with his Sara for an annual follow up of nasal CPAP therapy. He was diagnosed to have mild obstructive sleep apnea-hypopnea syndrome. The patient wears a ResMed F-20 full face mask size medium (he switched back from the AirTouch). [employer] is his durable medical supplier. He reports using the device nightly and all through the night. The compliance report shows usage in 363 nights out of the 365 nights, averaging 8 hours a night. The > 4 hour compliance rate for the past 365 days is 97%. He complained of no particular problem with the device such as soreness on the face, dry nose, epistaxis, nasal congestion or headache. He thinks that the pressure of 14 -18 cmH2O is comfortable (his old machine is set on 16 cmH2O). On the CPAP therapy he notices improvement in his sleep quality, and that he wakes up feeling fresher in the morning and more awake/alert during the day. The [place] Sleepiness Scale score is 12. The average residual AHI is 1.7; and air leak, 2.6 L/min. The 90th percentile pressure is 15.9 cmH2O. His ResMed AirSense 10 is less than 3 years old. Sleep Study - Results Type of Sleep Study: Polysomnography Prior sleep studies: Yes Year and Where: 2005 - [facility] CPAP Compliance Data - Data Reviewed with Patient Average duration of nightly device use: 7HRS 58MIN Compliance rate %: 98 (05/31/22-11/26/22) Current pressure setting (cmH2O): 14-18 Average residual AHI: 1.8 Subjective Initial [place] Sleepiness Scale score: 9 (in 2019) Current [place] Sleepiness Scale score: 11 (11/30/22) Allergies and Home Medications Drug allergies reviewed: Yes Home medication list reviewed: Yes Allergy and home medication list: Allergies latex Allergy (Verified 12/17/20 14:35) Rash Review of Systems Review of systems same as previous: Yes Physical Exam Vital signs obtained and entered by: SHIMA Ugarte MA Blood Pressure: 126/68 (LEFT ARM) Cuff size: regular Heart Rate: 71 O2 Saturation: 99 Height: 5 ft 8 in Weight: 219 lb 12.8 oz Body Mass Index: 33.4 BMI Classification: Obese Impression and Plan IMPRESSION: 1. Obstructive Sleep Apnea-Hypopnea Syndrome, mild, with the patient continuing to do well on nasal CPAP therapy. He has excellent compliance and significant clinical improvement. The current pressure appears effective and comfortable. Overall, he is very satisfied with treatment and plans to continue with it long-term. His recent increase in air leak is because his marlow. No adjustment is necessary today. PLAN: 1. Lower the pressure range to 12 - 16 cmH2O to help reduce air leak. 2. Try to lose weight 3. Return in one year for follow up or earlier if there is any problem with t he treatment. Adjust device pressure to (cmH2O): 12 - 16 Counseling Topics: Weight control Follow up with Sleep Care in: 1 year Visit Type: In Office Time Spent with Patient (minutes): 15 Provider Statement: I spent 100% of the Face to Face Visit with the patient with greater than 50% spent counseling the patient and coordination of care.
[2022-11-30 10:16] VITALS: BP 126/68
== END 2022-11-30 09:27 | disposition home or self-care (01) ==
LOC: SC 09:26
PROVIDERS: ATTEND Internal Medicine Pulmonary Disease
DX: G47.33 Obstructive sleep apnea (adult) (pediatric) (principal); E66.9 Obesity, unspecified; Z68.33 Body mass index [BMI] 33.0-33.9, adult
CPT/HCPCS: 99212; G0463

== ENCOUNTER 2023-03-01 10:33 | Inpatient (IN) | payer MEDICARE, OTHER ==
[2023-03-01 10:55] LABS: EOSINOPHILS % (AUTO) 2.1 %; HCT - HEMATOCRIT 43.6 % (42.0-52.0); HGB - HEMOGLOBIN 14.5 g/dL (14.0-18.0); LYMPHOCYTES % (AUTO) 28.5 %; MEAN CORPUSCULAR HEMOGLOBIN 28.4 pg (27.0-31.0); MEAN CORPUSCULAR HGB CONC 33.3 g/dL (32.0-36.0); MEAN CORPUSCULAR VOLUME 85.5 fL (80.0-94.0); MEAN PLATELET VOLUME 9.8 fL (7.4-11.4); MONOCYTES % (AUTO) 7.9 %; NEUTROPHILS % (AUTO) 57.9 %; PLT - PLATELET COUNT 333 10^3/uL (130-450); RED CELL DISTRIBUTION WIDTH 12.7 % (12.0-15.0); WHITE BLOOD COUNT 9.7 x10^3/uL (4.8-10.8)
[2023-03-01 11:12] LABS: ALBUMIN 4.3 g/dL (3.2-5.5); ALBUMIN/GLOBULIN RATIO 1.4 (1.0-2.2); BILIRUBIN,TOTAL 0.6 mg/dL (0.2-1.0); CALCIUM 10.6 mg/dL (8.5-10.3); CREATININE 3.4 mg/dL (0.6-1.3); POTASSIUM 3.8 mmol/L (3.5-4.5); TOTAL PROTEIN 7.4 g/dL (6.4-8.9)
[2023-03-01 11:13] LABS: SLIDE REVIEW? Indicated
--- NOTE | 2023-03-01 11:13 | XRAY Report ---
PROCEDURE: Chest 1 View X-Ray INDICATIONS: Chest Pain TECHNIQUE: One view of the chest was acquired. COMPARISON: None. FINDINGS: Surgical changes and devices: None. Lungs and pleura: No pleural effusions or pneumothorax. Lungs are clear. Mediastinum: Mediastinal contours appear normal. Heart size is normal. Bones and chest wall: No suspicious bony lesions. Overlying soft tissues appear unremarkable. IMPRESSION: No acute cardiopulmonary process. Reviewed by: Dewey Woodard on 03/01/2023 11:11 AM PDT Approved by: Dewey Woodard on 03/01/2023 11:11 AM PDT Station ID: [id number]
[2023-03-01 11:15] LABS: TROPONIN I HIGH SENSITIVITY 2.7 ng/L (2.3-19.7)
[2023-03-01 11:39] LABS: ABNORMAL LYMPHS % (MANUAL) 0 %
[2023-03-01 11:42] LABS: BAND NEUTROPHILS % (MANUAL) 6 %; BASOPHILS # (MANUAL) 0.1 10^3/uL (0-0.1); BASOPHILS % (MANUAL) 1 %; EOSINOPHILS # (MANUAL) 0.2 10^3/uL (0-0.7); LYMPHOCYTES # (MANUAL) 3.4 10^3/uL (1.5-3.5); LYMPHOCYTES % (MANUAL) 35 %; METAMYELOCYTES % (MANUAL) 2 %; MONOCYTES # (MANUAL) 0.6 10^3/uL (0.0-1.0); NEUTROPHILS # (MANUAL) 5.2 10^3/uL (1.5-6.6)
[2023-03-01] MEDS ORDERED: SODIUM CHLORIDE 0.9% 1,000 ML IV STA (11:42)
[2023-03-01 11:46] LABS: PLATELET ESTIMATE, MANUAL NORMAL (130-450,000) (NORMAL); PLATELET MORPHOLOGY NORMAL APPEARANCE (NORMAL); RBC MORPHOLOGY (MULTIPLE) NORMAL APPEARANCE (NORMAL); WBC MORPHOLOGY (MULTIPLE) NORMAL APPEARANCE (NORMAL)
[2023-03-01 11:49] LABS: B. PARAPERTUSSIS- RESP PCR PAN NOT DETECTED; B. PERTUSSIS- RESP PCR PANEL NOT DETECTED; C. PNEUMONIAE- RESP PCR PANEL NOT DETECTED; CORONAVIRUS 229E-RESP PCR NOT DETECTED; CORONAVIRUS HKU1-RESP PCR NOT DETECTED; CORONAVIRUS NL63-RESP PCR NOT DETECTED; CORONAVIRUS OC43-RESP PCR NOT DETECTED; HUMAN METAPNEUMOVIRUS NOT DETECTED; INFLUENZA A- RESP PCR PANEL NOT DETECTED; INFLUENZA B - RESP PCR PANEL NOT DETECTED; M. PNEUMONIAE- RESP PCR PANEL NOT DETECTED; PARAINFLUENZA VIRUS 1 NOT DETECTED; PARAINFLUENZA VIRUS 2 NOT DETECTED; PARAINFLUENZA VIRUS 3 NOT DETECTED; PARAINFLUENZA VIRUS 4 NOT DETECTED; RHINOVIRUS/ENTEROVIRUS NOT DETECTED; RSV- RESP PCR PANEL NOT DETECTED; SARS-CoV-2 -RESP PCR PANEL NOT DETECTED
--- NOTE | 2023-03-01 11:57 | ED Physician Documentation ---
History of Present Illness - Stated complaint Stated Complaint: SOA,LOW BP,LOWER BACK PX - Chief complaint Chief Complaint: General - Additonal information Additional information: What is 67-year-old gentleman who has a history of COPD, diabetes and SIADH presents the emergency department for evaluation of fatigue, malaise and hypotension. Patient reports that he got the RSV, COVID and flu vaccinations on February 22. Starting the third he began to have fatigue and malaise. He found that he was increasingly short of air. He has had several episodes of near syncope with ambulation. He began intermittently checking his saturations at home and found they are as low as 77% though no hypoxia noted here. Checked his blood pressure this morning it was 89/42 thus he presents here. Denies any fevers over the last 7 to 10 days. No nausea or vomiting. 1 episode of chest pain now resolved. He denies any's missed any or taken more doses of his DDAVP than he should. Review of Systems Constitutional: reports: Fatigue. denies: Fever Cardiac: reports: Chest pain / pressure. denies: Palpitations Respiratory: reports: Dyspnea. denies: Cough GI: reports: Reviewed and negative : reports: Reviewed and negative Skin: reports: Reviewed and negative PD PAST MEDICAL HISTORY - Past Medical History Cardiovascular: Hypertension, High cholesterol Respiratory: COPD, Sleep apnea, CPAP use Neuro: None Endocrine/Autoimmune: None GI: GERD : None HEENT: None Psych: None Musculoskeletal: Osteoarthritis Derm: None - Past Surgical History Past Surgical History: Yes Ortho: Spine surgery - Present Medications Home Medications: Ambulatory Orders Medication Instructions Recorded Confirmed Albuterol Sulfate [Proair Hfa 1 - 2 puffs INH Q4H PRN 06/03/17 03/01/23 Inhaler] Amlodipine Besylate 10 mg PO DAILY 06/03/17 03/01/23 Budesonide/Formoterol Fumarate 2 puffs IH BID 06/03/17 03/01/23 [Symbicort 160-4.5 Mcg Inhaler] Desmopressin Acetate 2 tab PO BID 06/03/17 03/01/23 Levothyroxine Sodium 100 mcg PO DAILY 06/03/17 03/01/23 Omeprazole 40 mg ORAL BID 06/03/17 03/01/23 Simvastatin 20 mg PO DAILY PM 06/03/17 03/01/23 Tiotropium [place] [Spiriva] 1 inhaler IH DAILY 06/03/17 03/01/23 lisinopriL [Lisinopril] 40 mg PO DAILY 06/03/17 03/01/23 Cholecalciferol (Vitamin D3) 2,000 unit PO DAILY 10/12/19 03/01/23 [Vitamin D] Hydrocortisone 10 mg PO QDLUNCH 10/12/19 03/01/23 Testosterone Cypionate 250 mg IM ONCE 10/12/19 03/01/23 [Depo-Testosterone] Gabapentin [Neurontin] 600 mg PO TID #30 tablet 12/17/20 03/01/23 Metformin HCl [Metformin ER 500 mg PO DAILY 03/01/23 03/01/23 Gastric] - Allergies Allergies/Adverse Reactions: Allergies Allergy/AdvReac Type Severity Reaction Status Date / Time latex Allergy Rash Verified 03/01/23 10:41 - Social History Does the pt smoke?: No Smoking Status: Former smoker Does the pt drink ETOH?: Yes Does the pt have substance abuse?: No - Immunizations Immunizations: TDAP >10years/unknown PD ED PE NORMAL - General General: Alert and oriented X 3, No acute distress, Well developed/nourished - HEENT HEENT: Atraumatic - Neck Neck: Supple, no meningeal sign - Cardiac Cardiac: RRR, No murmur - Respiratory Respiratory: No respiratory distress, Clear bilaterally - Abdomen Abdomen: Normal bowel sounds, Soft - Back Back: No CVA TTP - Derm Derm: Normal color, Warm and dry, No rash - Extremities Extremities: No deformity - Neuro Neuro: Alert and oriented X 3 Eye Opening: Spontaneous Motor: Obeys Commands Verbal: Oriented GCS Score: 15 Results - Vitals Vitals: Vital Signs - 24 hr 03/01/23 03/01/23 03/01/23 10:36 11:38 11:51 Temperature 36.5 C Heart Rate 94 74 Heart Rate [ Sitting] Heart Rate [ Standing] Heart Rate [ 79 Supine] Respiratory 20 20 Rate Blood Pressure 102/60 98/59 L Blood Pressure [Sitting] Blood Pressure [Standing] Blood Pressure 135/64 H [Supine] O2 Saturation 97 97 03/01/23 03/01/23 11:57 13:00 Temperature Heart Rate 78 Heart Rate [ 16 L Sitting] Heart Rate [ 77 Standing] Heart Rate [ 79 Supine] Respiratory 14 Rate Blood Pressure 116/63 Blood Pressure 124/70 [Sitting] Blood Pressure 124/60 [Standing] Blood Pressure 135/64 H [Supine] O2 Saturation 100 Oxygen O2 Source Room air - EKG (time done) 1052 EKG releavant findings:: EKG personally interpreted by author of this note. Relevant findings are: Rate: Rate (enter#) (79) Rhythm: NSR [place]: Normal Intervals: No: Prolonged QT QRS: Normal Ischemia: Non specific changes Compare to prior EKG: Old EKG unavailable Computer interpretation: Agree with computer - Labs Labs: Laboratory Tests 03/01/23 03/01/23 03/01/23 10:48 10:48 10:48 WBC 9.7 RBC 5.10 Hgb 14.5 Hct 43.6 MCV 85.5 MCH 28.4 MCHC 33.3 RDW 12.7 Plt Count 333 MPV 9.8 Neut # (Auto) Not Reportable Lymph # (Auto) Not Reportable [place] # (Auto) Not Reportable Eos # (Auto) Not Reportable Baso # (Auto) Not Reportable Absolute Nucleated RBC Not Reportable Total Counted 100 Band Neuts % (Manual) 6 Abnorm Lymph % (Manual) 0 Metamyelocytes % 2 H Nucleated RBC % Not Reportable Neutrophils # (Manual) 5.2 Lymphocytes # (Manual) 3.4 Monocytes # (Manual) 0.6 Eosinophils # (Manual) 0.2 Basophils # (Manual) 0.1 Manual Slide Review Indicated WBC Morphology NORMAL APPEARANCE Platelet Estimate NORMAL (130-450,000) Platelet Morphology NORMAL APPEARANCE RBC Morph Micro Appear NORMAL APPEARANCE Sodium 132 L Potassium 3.8 Chloride 95 L Carbon Dioxide 27 Anion Gap 10.0 BUN 56 H Creatinine 3.4 H Estimated GFR (MDRD) 18 L Glucose 127 H Lactic Acid Calcium 10.6 H Total Bilirubin 0.6 AST 10 ALT 13 Alkaline Phosphatase 94 Troponin I High Sens 2.7 Total Protein 7.4 Albumin 4.3 Globulin 3.1 Albumin/Globulin Ratio 1.4 Lipase 53 TSH Urine Color Urine Clarity Urine pH Ur Specific [place] Urine Protein Urine Glucose (UA) Urine Ketones Urine Occult Blood Urine Nitrite Urine Bilirubin Urine Urobilinogen Ur Leukocyte Esterase Ur Microscopic Review Urine Culture Comments Nasal Adenovirus (PCR) NOT DETECTED Nasal B. parapertussis DNA (PCR) NOT DETECTED Nasal Coronavir 229E PCR NOT DETECTED Nasal Coronavir HKU1 PCR NOT DETECTED Nasal Coronavir NL63 PCR NOT DETECTED Nasal Coronavir OC43 PCR NOT DETECTED Nasal Enterovir/Rhinovir PCR NOT DETECTED Nasal Influenza B PCR NOT DETECTED Nasal Influenza A PCR NOT DETECTED Nasal Parainfluen 1 PCR NOT DETECTED Nasal Parainfluen 2 PCR NOT DETECTED Nasal Parainfluen 3 PCR NOT DETECTED Nasal Parainfluen 4 PCR NOT DETECTED Nasal RSV (PCR) NOT DETECTED Nasal B.pertussis DNA PCR NOT DETECTED Nasal C.pneumoniae (PCR) NOT DETECTED [place] Human Metapneumo PCR NOT DETECTED Nasal M.pneumoniae (PCR) NOT DETECTED Nasal SARS-CoV-2 (PCR) NOT DETECTED 03/01/23 03/01/23 03/01/23 10:48 12:05 12:05 WBC RBC Hgb Hct MCV MCH MCHC RDW Plt Count MPV Neut # (Auto) Lymph # (Auto) [place] # (Auto) Eos # (Auto) Baso # (Auto) Absolute Nucleated RBC Total Counted Band Neuts % (Manual) Abnorm Lymph % (Manual) Metamyelocytes % Nucleated RBC % Neutrophils # (Manual) Lymphocytes # (Manual) Monocytes # (Manual) Eosinophils # (Manual) Basophils # (Manual) Manual Slide Review WBC Morphology Platelet Estimate Platelet Morphology RBC Morph Micro Appear Sodium Potassium Chloride Carbon Dioxide Anion Gap BUN Creatinine Estimated GFR (MDRD) Glucose Lactic Acid 1.5 Calcium Total Bilirubin AST ALT Alkaline Phosphatase Troponin I High Sens 2.7 Total Protein Albumin Globulin Albumin/Globulin Ratio Lipase TSH 1.71 Urine Color Urine Clarity Urine pH Ur Specific [place] Urine Protein Urine Glucose (UA) Urine Ketones Urine Occult Blood Urine Nitrite Urine Bilirubin Urine Urobilinogen Ur Leukocyte Esterase Ur Microscopic Review Urine Culture Comments Nasal Adenovirus (PCR) Nasal B. parapertussis DNA (PCR) Nasal Coronavir 229E PCR Nasal Coronavir HKU1 PCR Nasal Coronavir NL63 PCR Nasal Coronavir OC43 PCR Nasal Enterovir/Rhinovir PCR Nasal Influenza B PCR Nasal Influenza A PCR Nasal Parainfluen 1 PCR Nasal Parainfluen 2 PCR Nasal Parainfluen 3 PCR Nasal Parainfluen 4 PCR Nasal RSV (PCR) Nasal B.pertussis DNA PCR Nasal C.pneumoniae (PCR) [place] Human Metapneumo PCR Nasal M.pneumoniae (PCR) Nasal SARS-CoV-2 (PCR) 03/01/23 12:25 WBC RBC Hgb Hct MCV MCH MCHC RDW Plt Count MPV Neut # (Auto) Lymph # (Auto) [place] # (Auto) Eos # (Auto) Baso # (Auto) Absolute Nucleated RBC Total Counted Band Neuts % (Manual) Abnorm Lymph % (Manual) Metamyelocytes % Nucleated RBC % Neutrophils # (Manual) Lymphocytes # (Manual) Monocytes # (Manual) Eosinophils # (Manual) Basophils # (Manual) Manual Slide Review WBC Morphology Platelet Estimate Platelet Morphology RBC Morph Micro Appear Sodium Potassium Chloride Carbon Dioxide Anion Gap BUN Creatinine Estimated GFR (MDRD) Glucose Lactic Acid Calcium Total Bilirubin AST ALT Alkaline Phosphatase Troponin I High Sens Total Protein Albumin Globulin Albumin/Globulin Ratio Lipase TSH Urine Color DARK YELLOW Urine Clarity CLEAR Urine pH 5.5 Ur Specific [place] 1.025 Urine Protein NEGATIVE Urine Glucose (UA) NEGATIVE Urine Ketones TRACE Urine Occult Blood NEGATIVE Urine Nitrite NEGATIVE Urine Bilirubin NEGATIVE Urine Urobilinogen 0.2 (NORMAL) Ur Leukocyte Esterase NEGATIVE Ur Microscopic Review NOT INDICATED Urine Culture Comments NOT INDICATED Nasal Adenovirus (PCR) Nasal B. parapertussis DNA (PCR) Nasal Coronavir 229E PCR Nasal Coronavir HKU1 PCR Nasal Coronavir NL63 PCR Nasal Coronavir OC43 PCR Nasal Enterovir/Rhinovir PCR Nasal Influenza B PCR Nasal Influenza A PCR Nasal Parainfluen 1 PCR Nasal Parainfluen 2 PCR Nasal Parainfluen 3 PCR Nasal Parainfluen 4 PCR Nasal RSV (PCR) Nasal B.pertussis DNA PCR Nasal C.pneumoniae (PCR) [place] Human Metapneumo PCR Nasal M.pneumoniae (PCR) Nasal SARS-CoV-2 (PCR) - Rads (name of study) cxr Relevant Findings:: Final report received (no acute cardiopulmonary process) PD Medical Decision Making - ED course Complexity details: reviewed results, re-evaluated patient ED course: 67-year-old male who has a history of COPD, diabetes and SIADH presents the emergency department for evaluation about 10 days generalized fatigue and malaise. Multiple episodes of near syncope especially with ambulation. He has checked his blood pressure at home this morning and found it to be 80s over 50s thus he presents here. Denies missing or taking extra doses of the DDAVP. Presentation the emergency department alert and well-appearing. He did have some soft and low blood pressures on presentation though his orthostatics were negative. EKG is interpreted by myself was nonischemic. 2 troponins were negative. CBC and electrolytes were obtained which per my interpretation showed no anemia. He is noted to have a BUN of 56 and a creatinine of 3.4. Right I was able to review the patient's MyChart Through [facility] and I see that in November 12, 2022 he had a BUN of 20 and a creatinine of 1.2. GFR was 65. Patient's changes in renal function are now acute, but given this history of SIADH it may be reasonable to assume that he is not getting enough DDAVP thus getting excessively dry and hypotensive. I have spoken briefly on the phone with Dr. Montes or hospitalist who agrees to bring the patient in patient for observation admission. I have initially ordered a liter of IV fluids. Further care to be dictated by the inpatient hospitalist team Departure - Departure Disposition: 65 [facility] DC/Xfer Clinical Impression: Near syncope, XIOMARA (acute kidney injury), History of SIADH Condition: Stable Record reviewed to determine appropriate education?: Yes Forms: PCP List
[2023-03-01 12:29] LABS: BILIRUBIN,URINE NEGATIVE (NEGATIVE); GLUCOSE, URINE (UA) NEGATIVE (NEGATIVE); KETONES,URINE (UA) TRACE mg/dL (NEGATIVE); LEUKOCYTE ESTERASE, URINE NEGATIVE (NEGATIVE); NITRITE,URINE NEGATIVE (NEGATIVE); OCCULT BLOOD,URINE NEGATIVE (NEGATIVE); PH,URINE 5.5 PH (5.0-7.5); PROTEIN,URINE NEGATIVE (NEGATIVE); UROBILINOGEN,URINE 0.2 (NORMAL) E.U./dL (NORMAL)
[2023-03-01 12:31] LABS: CLARITY,URINE CLEAR (CLEAR)
[2023-03-01] MEDS ORDERED: SODIUM CHLORIDE FLUSH 0.9% 10 ML SYRINGE IVP PRN (13:38)
[2023-03-01] MEDS ORDERED: ACETAMINOPHEN 325 MG TABLET PO PRN (13:38)
[2023-03-01] MEDS ORDERED: ONDANSETRON 4 MG/2 ML VIAL IVP PRN (13:38)
--- NOTE | 2023-03-01 13:49 | HISTORY & PHYSICAL EXAMINATION ---
Chief Complaint - Chief Complaint Chief Complaint: Near syncope today w/ low BP 89/50 at home <Tierra Montes - Last Filed: 03/01/23 19:24> History of Present Illness - Admitted From Admitted From:: ED - History Obtained From History obtained from: ED provider and the patient <Tierra Montes - Last Filed: 03/01/23 19:24> - History of Present Illness HPI Comment/Other: This is a 67-year-old male who has a history of MANUELA on CPAP, diabetes on Metformin and COPD. He developed diabetes insipidus in 2002 and was put on desmopressin. 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 He knows to increase his hydrocortisone dose whenever he gets a viral syndrome or feels sick. He has never had labs at this hospital before, he has an Endocrinologust and gets all his care at [facility] in [place]. One week ago he underwent RSV, Inffluenza and COVID vaccinations. Following that he started to have malaise and fatigue and was in bed, eating less, mostly sleeping. He then had several days of SOB and documented low oxygen saturations <80% at home. He did appropriately increase his hydrocortisone dose from 2 tabs a.m. and 1 PM up to 3 tabs AM and 2 in p.m. His pointed out to him that he was not drinking his usual amounts of water or liquids however for this entire week. He was taking his metformin. He stopped taking both of his BP meds (lisinopril and amlodipine). Today he had near syncope when walking at home x2 and measured his blood pressure and states it was 89/42. He came to the ER today where his first blood pressure was "soft" then he had a documented blood pressure of 98/59. He received a liter of fluids. Lab tests came back showing BUN 56 and creatinine 3.4 (his baseline creatinine is 1.2 from MyChart). Sodium today is 132. He is not desaturating here. His chest x-ray was unremarkable. He is COVID-negative today. He had orthostatic vital signs measured later which were negative in the ED. The ED provider spoke to me about this patient. He will be admitted for managing XIOMARA with a GFR <30, weakness and near-syncope related to hypotension. I spoke to him about his CODE BLUE wishes and he wants to be a Full Code. 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 He lives with his and he is the caregiver for her because she has had cancer with mets to the brain and needed 2 craniotomies. He is an ex- smoker, quit in 2007. He drinks no alcohol. No drug use. <Tierra Montes - Last Filed: 03/01/23 19:24> Meds/Allgy <Lois Rodriguze - Last Filed: 03/01/23 13:58> <Tirera Montes - Last Filed: 03/01/23 19:24> - Home Medications Home Medications: Ambulatory Orders Medication Instructions Recorded Confirmed Albuterol Sulfate [Proair Hfa 1 - 2 puffs INH Q4H PRN 06/03/17 03/01/23 Inhaler] Amlodipine Besylate 10 mg PO DAILY 06/03/17 03/01/23 Budesonide/Formoterol Fumarate 2 puffs IH BID 06/03/17 03/01/23 [Symbicort 160-4.5 Mcg Inhaler] Desmopressin Acetate 2 tab PO BID 06/03/17 03/01/23 Levothyroxine Sodium 100 mcg PO DAILY 06/03/17 03/01/23 Omeprazole 40 mg ORAL BID 06/03/17 03/01/23 Simvastatin 10 mg PO DAILY PM 06/03/17 03/01/23 Tiotropium [place] [Spiriva] 2 puffs IH DAILY 06/03/17 03/01/23 lisinopriL [Lisinopril] 40 mg PO DAILY 06/03/17 03/01/23 Cholecalciferol (Vitamin D3) 5,000 unit PO DAILY 10/12/19 03/01/23 [Vitamin D] Hydrocortisone 10 mg PO TID 10/12/19 03/01/23 Testosterone Cypionate 250 mg IM ONCE 10/12/19 03/01/23 [Depo-Testosterone] Gabapentin [Neurontin] 600 mg PO TID #30 tablet 12/17/20 03/01/23 Metformin HCl [Metformin ER 500 mg PO DAILY 03/01/23 03/01/23 Gastric] [place]-3 Fatty Acids [[place]-3] 2,000 mg PO DAILY 03/01/23 03/01/23 - Allergies Allergies/Adverse Reactions: Allergies Allergy/AdvReac Type Severity Reaction Status Date / Time latex Allergy Rash Verified 03/01/23 10:41 Review of Systems - Constitutional Constitutional: reports: Fatigue, Malaise, Weakness, Poor appetite - Respiratory Respiratory: reports: SOB at rest - Musculoskeletal Musculoskeletal: reports: Muscle aches - Neurological Neurological: reports: Other (Lethargy) - All Other Systems All Other Systems: reports: Reviewed and negative (Symptoms and as in HPI) <Tierra Montes - Last Filed: 03/01/23 19:24> Exam - Vital Signs Reviewed Vital Signs: Yes - Physical Exam General Appearance: positive: No acute distress, Alert Eyes Bilateral: positive: Normal inspection, EOMI ENT: positive: ENT inspection nml, No signs of dehydration Neck: positive: Nml inspection, No JVD Respiratory: positive: No respiratory distress, Breath sounds nml Cardiovascular: positive: Regular rate & rhythm, No murmur Abdomen: positive: Non-tender, No organomegaly, Nml bowel sounds, No distention Skin: positive: Warm, Dry Extremities: positive: Non-tender, No pedal edema Neurologic/Psychiatric: positive: Oriented x3, CN's nml (2-12), Motor nml <Tierra Montes - Last Filed: 03/01/23 19:24> - Vital Signs Vital Signs: Vital Signs x48h Temp Pulse Pulse Pulse Pulse Resp BP 03/01/23 13:00 78 14 116/63 03/01/23 11:57 16 L 77 79 03/01/23 11:51 79 03/01/23 11:38 74 20 98/59 L 03/01/23 10:36 36.5 C 94 20 102/60 BP BP BP Pulse Ox 03/01/23 13:00 100 03/01/23 11:57 124/70 124/60 135/64 H 03/01/23 11:51 135/64 H 03/01/23 11:38 97 03/01/23 10:36 97 Conclusion/Plan - Lab Results Fish Bones: 03/01/23 10:48 03/01/23 10:48 <Lois Rodriguez - Last Filed: 03/01/23 13:58> - Problem List (1) XIOMARA (acute kidney injury) Conclusion/Plan: Patient presents with a creatinine of 3.4. His usual creatinine runs 1.2. Etiology could be volume depletion from poor recent oral intake or possibly from missing some of his meds like the higher doses of hydrocortisone Plan: Admit to inpatient status, since he had hypotension along with newly worsened GFR Avoid nephrotoxins Give IV fluids Follow BMP daily (2) Near syncope Conclusion/Plan: Caused by his low BP Plan: Give IV fluids Once med list is reconciled, hold any blood pressure meds (Lisinopril,and Amlodipine) until his blood pressure improves w/out orthostasis Follow orthostatic vital signs (3) Panhypopituitarism Conclusion/Plan: This patient knows to increase his hydrocortisone when he is "sick" and he did that for the past week Plan: I will resume all his usual endocrine meds and continue with the higher doses that he has been recently using of hydrocortisone (4) DM type 2 (diabetes mellitus, type 2) Conclusion/Plan: Patient is on Metformin at home Plan: Hold Metformin because of the XIOMARA Start a diabetic diet, fingerstick checks, sliding scale insulin coverage, hypoglycemia protocol Check A1c in a.m. (5) COPD (chronic obstructive pulmonary disease) Conclusion/Plan: Plan: Patient may take his inhaler meds (6) Hx of essential hypertension Conclusion/Plan: Plan: Hold his Lisinopril and Amlodipine until his blood pressure improves and is w/out orthostasis - Lab Results Fish Bones: 03/01/23 10:48 03/01/23 10:48 - Diagnostic Imaging Results Diagnostic Imaging Results: positive: Final report reviewed <Tierra Montes - Last Filed: 03/01/23 19:24> - Other Other Results/Comments: Attestation: The patient is expected to be hospitalized for greater than 2 midnights and is expected to be discharged or transferred to another facility within 96 hours: Yes. (Tierra Montes)
--- NOTE | 2023-03-01 15:21 | PHARMACY PROGRESS NOTE ---
- Best Possible Medication History Admit Date and Time: 03/01/23 1338 Processed by: Pharmacy Medication History completed: Yes Patient Interview: Completed Secondary Source(s): Written medication list, Insurance records As the person ultimately responsible for medication therapy, providers are able to order a medication from an existing home medication list in [facility] via the "Reconcile Routine" prior to Confirmation of that medication by software support analyst. Such practice is discouraged except when the physician, in their clinical judgment, deems that a medical need exists for a medication without regard to previous use.
[2023-03-01] MEDS: SODIUM CHLORIDE 0.9% 1,000 ML IV SCH (16:18)
[2023-03-01] MEDS: SODIUM CHLORIDE FLUSH 0.9% 10 ML SYRINGE IVP SCH (16:19)
[2023-03-01] MEDS ORDERED: ALBUTEROL NEB 2.5 MG/3 ML INH PRN (18:57)
[2023-03-01] MEDS ORDERED: IPRATROPIUM/ALBUTEROL 3 ML NEB INH PRN (18:58)
[2023-03-01] MEDS ORDERED: DESMOPRESSIN ACETATE 0.1 MG PO SCH (21:00)
[2023-03-01] MEDS: FORMOTEROL FUMARATE NEB 20 MCG/2 ML INH SCH (21:18)
[2023-03-01] MEDS: BUDESONIDE 0.5 MG/2 ML NEB INH SCH (21:19)
[2023-03-01] MEDS: HEPARIN 5,000 UNIT/ML VIAL SUBQ SCH (21:51)
[2023-03-01] MEDS: GABAPENTIN 300 MG CAPSULE PO SCH (21:52)
[2023-03-01] MEDS ORDERED: HYDROCORTISONE 10 MG TABLET PO SCH (22:00)
[2023-03-01] MEDS: PANTOPRAZOLE 40 MG TABLET PO SCH (22:38)
[2023-03-01] MEDS: HYDROCORTISONE 10 MG TABLET PO SCH (22:39)
[2023-03-02] MEDS: SODIUM CHLORIDE FLUSH 0.9% 10 ML SYRINGE IVP SCH ×2 (00:20→09:12)
[2023-03-02] MEDS: SODIUM CHLORIDE 0.9% 1,000 ML IV SCH (02:01)
[2023-03-02] MEDS: GABAPENTIN 300 MG CAPSULE PO SCH ×2 (06:30→14:14)
[2023-03-02] MEDS: HYDROCORTISONE 10 MG TABLET PO SCH ×2 (06:30→14:13)
[2023-03-02] MEDS: BUDESONIDE 0.5 MG/2 ML NEB INH SCH (06:46)
[2023-03-02] MEDS: FORMOTEROL FUMARATE NEB 20 MCG/2 ML INH SCH (06:47)
[2023-03-02] MEDS ORDERED: DESMOPRESSIN ACETATE 0.1 MG PO SCH (07:00)
[2023-03-02] MEDS ORDERED: CHOLECALCIFEROL 5,000 UNIT CAPSULE PO SCH (09:00)
[2023-03-02] MEDS: PANTOPRAZOLE 40 MG TABLET PO SCH (09:00)
[2023-03-02] MEDS ORDERED: LEVOTHYROXINE 100 MCG TABLET PO SCH (09:00)
[2023-03-02] MEDS: HEPARIN 5,000 UNIT/ML VIAL SUBQ SCH (09:02)
[2023-03-02 09:19] LABS: BASOPHILS # (AUTO) 0.1 10^3/uL (0.0-0.1); BASOPHILS % (AUTO) 1.3 %; EOSINOPHILS % (AUTO) 0.6 %; HCT - HEMATOCRIT 38.6 % (42.0-52.0); HGB - HEMOGLOBIN 13.1 g/dL (14.0-18.0); LYMPHOCYTES # (AUTO) 1.1 10^3/uL (1.5-3.5); LYMPHOCYTES % (AUTO) 16.5 %; MEAN CORPUSCULAR HGB CONC 33.9 g/dL (32.0-36.0); MEAN CORPUSCULAR VOLUME 85.4 fL (80.0-94.0); MEAN PLATELET VOLUME 9.8 fL (7.4-11.4); MONOCYTES # (AUTO) 0.7 10^3/uL (0.0-1.0); MONOCYTES % (AUTO) 9.7 %; NEUTROPHILS # (AUTO) 4.7 10^3/uL (1.5-6.6); NEUTROPHILS % (AUTO) 68.6 %; PLT - PLATELET COUNT 334 10^3/uL (130-450); RED BLOOD COUNT 4.52 10^6/uL (4.70-6.10); RED CELL DISTRIBUTION WIDTH 12.8 % (12.0-15.0); WHITE BLOOD COUNT 6.9 x10^3/uL (4.8-10.8)
[2023-03-02 09:27] VITALS: O2SAT 94
[2023-03-02 09:34] LABS: CALCIUM 10.4 mg/dL (8.5-10.3); CREATININE 1.6 mg/dL (0.6-1.3); POTASSIUM 4.2 mmol/L (3.5-4.5)
--- NOTE | 2023-03-02 12:41 | Discharge Plan ---
Discharge Plan Problem Reviewed?: Yes Disposition: Home, Self Care Condition: Stable Diet: Regular Activity Restrictions: Activity as Tolerated Shower Restrictions: No Driving Restrictions: Yes Health Concerns: You have panhypopituitary is him due to resection of a pituitary tumor. Asked that you take many medications to supplement your thyroid and adrenal gland. You had 3 vaccines given to you all at once and you had subsequent reaction with fatigue, low appetite, and you were drinking very much. This went on for several days. You almost passed out and finally came to the emergency room for we found you to have renal failure from dehydration, a low blood pressure due to dehydration, and abnormal sodium, potassium, magnesium, and calcium. You have responded very well to simple management with IV fluids for hydration and supplementation of those electrolytes that were out of range. You responded much faster than we thought was going to happen. We anticipated you being here for 2 days and you only needed to be here for 1 day. Plan of Treatment: We are not changing any of your medications. I am asking that you see your primary care provider in follow-up or your automotive leasing sales representative. Your calcium seems to be chronically elevated. Minimally so but it is still elevated. If you could reach out to one of them to make sure you get follow-up for that. I would advise you to put a little bit of salt on your food. No more than 2000 mg a day. Make sure you drink plenty of fluids especially when you are ill. If you do have a low appetite and you are not eating or drinking very much do not, do not, do not take your metformin. Care Goals: At this time, now that his blood pressure and labs are normal, there are no new care goals. Assessment: Patient is awake, alert, oriented to person, time, placed and situation No Smoking: If you smoke, Please STOP! Call for help. Follow-up with: SAMUEL ELLIS MD [Primary Care Provider] -
--- NOTE | 2023-03-02 13:13 | DISCHARGE SUMMARY ---
Discharge Summary Admit Date: 03/01/23 Discharge Date: 03/02/23 Discharging Provider: Magda Joy MD Primary Care Provider: Shaina Valencia MD ([facility]) and Stewart Coats MD ([facility]) Code Status: Attempt Resuscitation Condition at Discharge: Stable Discharge Disposition: 01 Home, Self Care - DIAGNOSES Discharge Diagnoses with Status of Each Condition: 1. Acute kidney injury 2. Dehydration 3. Near syncope due to orthostatic hypotension 4. Panhypopituitarism 5. Type 2 diabetes mellitus, controlled, without complication, without long- term use of insulin 6. COPD without exacerbation 7. Hypertension 8. Hypercalcemia - HPI History of Present Illness: This is a 67-year-old male who has a history of MANUELA on CPAP, diabetes on Metformin and COPD. He developed diabetes insipidus in 2002 and was put on desmopressin. 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 He knows to increase his hydrocortisone dose whenever he gets a viral syndrome or feels sick. He has never had labs at this hospital before, he has an Endocrinologust and gets all his care at [facility] in [place]. One week ago he underwent RSV, Inffluenza and COVID vaccinations. Following that he started to have malaise and fatigue and was in bed, eating less, mostly sleeping. He then had several days of SOB and documented low oxygen saturations <80% at home. He did appropriately increase his hydrocortisone dose from 2 tabs a.m. and 1 PM up to 3 tabs AM and 2 in p.m. His pointed out to him that he was not drinking his usual amounts of water or liquids however for this entire week. He was taking his metformin. He stopped taking both of his BP meds (lisinopril and amlodipine). Today he had near syncope when walking at home x2 and measured his blood pressure and states it was 89/42. He came to the ER today where his first blood pressure was "soft" then he had a documented blood pressure of 98/59. He received a liter of fluids. Lab tests came back showing BUN 56 and creatinine 3.4 (his baseline creatinine is 1.2 from MyChart). Sodium today is 132. He is not desaturating here. His chest x-ray was unremarkable. He is COVID-negative today. He had orthostatic vital signs measured later which were negative in the ED. The ED provider spoke to me about this patient. He will be admitted for managing XIOMARA with a GFR <30, weakness and near-syncope related to hypotension. I spoke to him about his CODE BLUE wishes and he wants to be a Full Code. ([email or web address]) - Past Medical History Cardiovascular: reports: Hypertension, High cholesterol Respiratory: reports: COPD, Sleep apnea, CPAP use Neuro: reports: None Endocrine/Autoimmune: reports: Other (Had DI, then panhypopituitarism after pi tuatary gland removed in 2007) GI: reports: GERD : reports: None HEENT: reports: None Psych: reports: None Musculoskeletal: reports: Osteoarthritis Derm: reports: None MRSA Hx?: No - Past Surgical History Ortho: reports: Spine surgery Neuro: reports: Other (transnasal pituatary removal) - CONSULTS | PROCEDURES Procedures: Chest x-ray is without acute cardiopulmonary process - HOSPITAL COURSE Hospital Course: The patient was placed on IV fluids and his usual medications for pituitary insufficiency other than desmopressin. He found himself having have a lot of urinary frequency without the desmopressin. He responded very quickly to these measures and by the next morning was no longer orthostatic or dizzy. We had anticipated that he would take greater than 2 midnights to get better due to the severity of the acute kidney insufficiency. However he was near normal the next day and responded faster than we thought he would. His supine blood pressure was 132/60, sitting blood pressure 131/62, standing blood pressure 126/65. His pulse was 78 and his temperature was 36.8. His creatinine had responded and had gone from 3.4 to 1.6. Baseline for him is 1.2. BUN was 56 and a gone down to 30. Sodium was normal now. He had started at 132 and was now 139. Of note the patient still has hypercalcemia. Admission calcium was 10.6. He was 10.4 at discharge. He is followed by Stewart Coats MD, who is endocrinology with [facility] in [place]. He was able to show me that his last calcium level was 10.5 in October of this year. So his hypercalcemia, albeit mild, is chronic. I am asking him to follow-up with the calcium issue. I do not feel he has such diseases as hyperparathyroidism (primary or secondary), multiple myeloma, or milk-alkali syndrome. However he should be followed up in the outpatient setting. He is hypercalcemia may be strictly due to high doses of vitamin D at 5000 international units daily. The patient felt back to baseline other than a little bit of fatigue. Did want to go home because he is a primary caregiver for his . At discharge temperature was 36.8, heart rate 78, and blood pressure is as stated above. He does have some tachycardia when he does stand. He goes from 99 supine to 113 standing. He is 5 feet 7 inches tall, 91.5 kg. Muscular arms with tattoos. Wearing glasses, male pattern baldness. Cheerful, very pleasant man. Respirations are 16 and unlabored, he is 94% on room air. He is a pleasant, alert, oriented white male with normal speech patterns.Oriented to person, place, time and situation. Neck is supple. Lungs are clear. Regular rate and rhythm. Abdomen benign. Extremities without edema. Stands without ataxia or dizziness. Greater than 30 minutes was spent coordinating discharge and reviewing his old labs and records. This document was made in part using voice recognition software. While efforts are made to proofread this document, sound alike and grammatical errors may occur. - ALLERGIES Allergies/Adverse Reactions: Allergies Allergy/AdvReac Type Severity Reaction Status Date / Time latex Allergy Rash Verified 03/01/23 10:41 - MEDICATIONS Home Medications: Ambulatory Orders Medication Instructions Recorded Confirmed Albuterol Sulfate [Proair Hfa 1 - 2 puffs INH Q4H PRN 06/03/17 03/01/23 Inhaler] Amlodipine Besylate 10 mg PO DAILY 06/03/17 03/01/23 Budesonide/Formoterol Fumarate 2 puffs IH BID 06/03/17 03/01/23 [Symbicort 160-4.5 Mcg Inhaler] Desmopressin Acetate 2 tab PO BID 06/03/17 03/01/23 Levothyroxine Sodium 100 mcg PO DAILY 06/03/17 03/01/23 Omeprazole 40 mg ORAL BID 06/03/17 03/01/23 Simvastatin 10 mg PO DAILY PM 06/03/17 03/01/23 Tiotropium [place] [Spiriva 2 puffs IH DAILY 06/03/17 03/01/23 Handihaler] lisinopriL [Lisinopril] 40 mg PO DAILY 06/03/17 03/01/23 Cholecalciferol (Vitamin D3) 5,000 unit PO DAILY 10/12/19 03/01/23 [Vitamin D3] Hydrocortisone 10 mg PO TID 10/12/19 03/01/23 Testosterone Cypionate 250 mg IM ONCE 10/12/19 03/01/23 [Depo-Testosterone] Gabapentin [Neurontin] 600 mg PO TID #30 tablet 12/17/20 03/01/23 Metformin HCl [Metformin ER 500 mg PO DAILY 03/01/23 03/01/23 Gastric] [place]-3 Fatty Acids [[place]-3] 2,000 mg PO DAILY 03/01/23 03/01/23 - LABS Result Diagrams: 03/02/23 09:14 03/02/23 09:14
[2023-03-02 14:45] VITALS: BP 129/71
== END 2023-03-02 15:00 | disposition home or self-care (01) | DRG 683 ==
LOC: ED 10:33 → MS2 13:38
PROVIDERS: ADMIT Internal Medicine; ATTEND Specialist
DX: N17.9 Acute kidney failure, unspecified (principal); R55 Syncope and collapse; E22.2 Syndrome of inappropriate secretion of antidiuretic hormone; E23.0 Hypopituitarism; Z11.52 Encounter for screening for COVID-19; E86.0 Dehydration; I95.1 Orthostatic hypotension; G47.30 Sleep apnea, unspecified; K21.9 Gastro-esophageal reflux disease without esophagitis; E78.00 Pure hypercholesterolemia, unspecified; Z87.891 Personal history of nicotine dependence; E11.9 Type 2 diabetes mellitus without complications; J44.9 Chronic obstructive pulmonary disease, unspecified; I10 Essential (primary) hypertension; E83.52 Hypercalcemia; G47.33 Obstructive sleep apnea (adult) (pediatric); Z79.84 Long term (current) use of oral hypoglycemic drugs
CPT/HCPCS: 36415; 71045; 80048; 80053; 81003; 83605; 83690; 84443; 84484; 85025; 87040; 87633; 93005; 94640; 96360; 96361; 99285; A9270; J7626; 81001; 87086

== ENCOUNTER 2023-05-01 12:04 | Emergency (ER) | payer MEDICARE, OTHER ==
--- NOTE | 2023-05-01 13:41 | XRAY Report ---
PROCEDURE: Chest 2 View X-Ray INDICATIONS: cough TECHNIQUE: 2 views of the chest were acquired. COMPARISON: Radiograph March 01, 2023 FINDINGS: Surgical changes and devices: None. Lungs and pleura: Airspace opacity within the left lower lobe. Airspace opacity along the inferior m argin of the right upper lobe. No effusion, pneumothorax Mediastinum: Mediastinal contours appear normal. Heart size is normal. Bones and chest wall: No suspicious bony lesions. Overlying soft tissues appear unremarkable. IMPRESSION: Multifocal airspace opacities within the left lower lobe and right upper lobe concerning for atypical infection. Reviewed by: Stewart Perkins MD on 05/01/2023 12:39 PM [facility] Approved by: Stewart Perkins MD on 05/01/2023 12:39 PM [facility] Station ID: [id number]
[2023-05-01 13:50] LABS: B. PARAPERTUSSIS- RESP PCR PAN NOT DETECTED; B. PERTUSSIS- RESP PCR PANEL NOT DETECTED; C. PNEUMONIAE- RESP PCR PANEL NOT DETECTED; CORONAVIRUS 229E-RESP PCR NOT DETECTED; CORONAVIRUS HKU1-RESP PCR NOT DETECTED; CORONAVIRUS NL63-RESP PCR NOT DETECTED; CORONAVIRUS OC43-RESP PCR NOT DETECTED; HUMAN METAPNEUMOVIRUS NOT DETECTED; INFLUENZA A- RESP PCR PANEL NOT DETECTED; INFLUENZA B - RESP PCR PANEL NOT DETECTED; M. PNEUMONIAE- RESP PCR PANEL NOT DETECTED; PARAINFLUENZA VIRUS 1 NOT DETECTED; PARAINFLUENZA VIRUS 2 NOT DETECTED; PARAINFLUENZA VIRUS 3 NOT DETECTED; PARAINFLUENZA VIRUS 4 NOT DETECTED; RHINOVIRUS/ENTEROVIRUS NOT DETECTED; RSV- RESP PCR PANEL NOT DETECTED; SARS-CoV-2 -RESP PCR PANEL NOT DETECTED
[2023-05-01] MEDS ORDERED: cefTRIAXone 1 GM VIAL IM STA (14:36)
[2023-05-01] MEDS ORDERED: LIDOCAINE 1% 2 ML VIAL MC ONE (14:36)
[2023-05-01] MEDS ORDERED: DOXYCYCLINE 100 MG TABLET PO STA (14:50)
[2023-05-01] MEDS ORDERED: AMOXICILLIN 250 MG CAPSULE PO STA (14:50)
--- NOTE | 2023-05-01 14:51 | ED Physician Documentation ---
PD HPI DYSPNEA - Stated complaint Stated Complaint: RT CHEST PX,COUGH,CONGESTION - Chief complaint Chief Complaint: Resp - History obtained from History obtained from: Patient - Additional information Additional information: He has been sick for about 5 days with productive cough, generalized weakness. He was in bed for a few days and actually stopped his hydrocortisone for a few days and was very weak. Since then he has been taking stress dose steroids and is feeling somewhat better but still has a productive cough and shortness of breath. No fevers. He has a history of COPD but does not feel like he is wheezing. He has been compliant with his inhalers. He also has a history of adrenal insufficiency necessitating the hydrocortisone and other hormonal medications he is on. PD PAST MEDICAL HISTORY - Past Medical History Past Medical History: Yes Cardiovascular: Hypertension, High cholesterol Respiratory: COPD, Sleep apnea, CPAP use Neuro: None Endocrine/Autoimmune: Other GI: GERD : None HEENT: None Psych: None Musculoskeletal: Osteoarthritis Derm: None - Past Surgical History Past Surgical History: Yes Ortho: Spine surgery Neuro: Other - Present Medications Home Medications: Ambulatory Orders Medication Instructions Recorded Confirmed Albuterol Sulfate [Proair Hfa 1 - 2 puffs INH Q4H PRN 06/03/17 03/01/23 Inhaler] Amlodipine Besylate 10 mg PO DAILY 06/03/17 03/01/23 Budesonide/Formoterol Fumarate 2 puffs IH BID 06/03/17 03/01/23 [Symbicort 160-4.5 Mcg Inhaler] Desmopressin Acetate 2 tab PO BID 06/03/17 03/01/23 Levothyroxine Sodium 100 mcg PO DAILY 06/03/17 03/01/23 Omeprazole 40 mg ORAL BID 06/03/17 03/01/23 Simvastatin 10 mg PO DAILY PM 06/03/17 03/01/23 Tiotropium [place] [Spiriva 2 puffs IH DAILY 06/03/17 03/01/23 Handihaler] lisinopriL [Lisinopril] 40 mg PO DAILY 06/03/17 03/01/23 Cholecalciferol (Vitamin D3) 5,000 unit PO DAILY 10/12/19 03/01/23 [Vitamin D3] Hydrocortisone 10 mg PO TID 10/12/19 03/01/23 Testosterone Cypionate 250 mg IM ONCE 10/12/19 03/01/23 [Depo-Testosterone] Gabapentin [Neurontin] 600 mg PO TID #30 tablet 12/17/20 03/01/23 Metformin HCl [Metformin ER 500 mg PO DAILY 03/01/23 03/01/23 Gastric] [place]-3 Fatty Acids [[place]-3] 2,000 mg PO DAILY 03/01/23 03/01/23 Amoxicillin 2 tab PO TID #30 cap 05/01/23 Doxycycline [Vibramycin] 100 mg PO BID #10 tablet 05/01/23 - Allergies Allergies/Adverse Reactions: Allergies Allergy/AdvReac Type Severity Reaction Status Date / Time latex Allergy Rash Verified 03/01/23 10:41 - Social History Does the pt smoke?: No Smoking Status: Never smoker Does the pt drink ETOH?: Yes Does the pt have substance abuse?: No - Immunizations Immunizations: TDAP >10years/unknown PD ED PE NORMAL - Vitals Vital signs reviewed: Yes (Unremarkable vital signs) - General General: Alert and oriented X 3, No acute distress - HEENT HEENT: PERRL, EOMI - Neck Neck: Supple, no meningeal sign, No bony TTP - Cardiac Cardiac: RRR, No murmur - Respiratory Respiratory: No respiratory distress, Other (Mildly diminished left base, no wheezing) - Abdomen Abdomen: Non tender - Neuro Neuro: Alert and oriented X 3, Normal speech Results - Vitals Vitals: Vital Signs - 24 hr 05/01/23 12:23 Temperature 36.8 C Heart Rate 79 Respiratory 20 Rate Blood Pressure 130/61 O2 Saturation 100 Oxygen O2 Source Room air - Labs Labs: Laboratory Tests 05/01/23 12:35 Nasal Adenovirus (PCR) NOT DETECTED Nasal B. parapertussis DNA (PCR) NOT DETECTED Nasal Coronavir 229E PCR NOT DETECTED Nasal Coronavir HKU1 PCR NOT DETECTED Nasal Coronavir NL63 PCR NOT DETECTED Nasal Coronavir OC43 PCR NOT DETECTED Nasal Enterovir/Rhinovir PCR NOT DETECTED Nasal Influenza B PCR NOT DETECTED Nasal Influenza A PCR NOT DETECTED Nasal Parainfluen 1 PCR NOT DETECTED Nasal Parainfluen 2 PCR NOT DETECTED Nasal Parainfluen 3 PCR NOT DETECTED Nasal Parainfluen 4 PCR NOT DETECTED Nasal RSV (PCR) NOT DETECTED Nasal B.pertussis DNA PCR NOT DETECTED Nasal C.pneumoniae (PCR) NOT DETECTED Alexander Human Metapneumo PCR NOT DETECTED Nasal M.pneumoniae (PCR) NOT DETECTED Nasal SARS-CoV-2 (PCR) NOT DETECTED - Rads (name of study) 2 view chest x-ray showing multifocal pneumonia Relevant Findings:: Final report received, EMP independent interpretation of test PD Medical Decision Making - ED course Complexity details: reviewed results ([employer] panel negative for all tested for pathology) ED course: He appears well with unremarkable vital signs. He is already taking stress dose steroids which is appropriate. Will place on amoxicillin and doxycycline. Departure - Departure Disposition: Home, Self Care Clinical Impression: Pneumonia Qualifiers: Pneumonia type: due to unspecified organism Laterality: bilateral Lung location: unspecified part of lung Qualified Code(s): J18.9 - Pneumonia, unspecified organism Condition: Good Record reviewed to determine appropriate education?: Yes Instructions: ED Pneumonia Adult Prescriptions: Amoxicillin 2 tab PO TID #30 cap Doxycycline [Vibramycin] 100 mg PO BID #10 tablet Comments: As discussed, do not suddenly stop your hydrocortisone you will get quite ill and that is probably why you got weak the other day. Continue the stress dose steroids until you are feeling better. I sent your prescription electronically to [facility] in [place]. Call your doctor to arrange a follow-up appointment, make the next available appointment. In the interim, return anytime if worse or if new symptoms develop. Forms: PCP List
[2023-05-01 15:22] VITALS: BP 119/59; O2SAT 98
== END 2023-05-01 15:15 | disposition home or self-care (01) ==
LOC: ED 12:04
DX: J18.9 Pneumonia, unspecified organism (principal); I10 Essential (primary) hypertension; Z20.822 Contact with and (suspected) exposure to COVID-19
CPT/HCPCS: 71046; 87633; 96372; 99284; A9270

== ENCOUNTER 2023-12-13 09:35 | Outpatient (CLI) | payer MEDICARE, OTHER ==
[2023-12-13 10:18] VITALS: BP 146/98; O2SAT 97
--- NOTE | 2023-12-13 10:18 | SLEEP CARE CONSULTATION ---
Information from patient questionnaire entered by Jad Thakkar. I have reviewed and concur with the information entered by Jad Thakkar. This document represents the service I personally performed and the decisions made by me, Cristobal Bell MD, [facility]. History of Present Illness Service Date and Time: 12/13/2023 0935 Previous diagnosis: Moderate, Obstructive Sleep Apnea-Hypopnea Syndrome AHI: 13 (in 2005) Reason for follow up: annual (LAST SEEN 11/2022) Equipment type: CPAP (RESMED) Equipment obtained from: [employer] Mask style: Full face Prior sleep studies: Yes Year and Where: 2005 - [facility] Type of Sleep Study: Polysomnography HPI additional information: Mr. Hogue returned today an annual follow up of nasal CPAP therapy. He was diagnosed to have mild obstructive sleep apnea-hypopnea syndrome. The patient wears a ResMed F-20 full face mask size medium (he switched back from the AirTouch). [employer] is his durable medical supplier. He reports using the device nightly and all through the night. The compliance report shows usage in 340 nights out of the 365 nights, averaging 8 hours a night. The > 4 hour compliance rate for the past 365 days is 90%. He complained of no particular problem with the device such as soreness on the face, dry nose, epistaxis, nasal congestion or headache. He thinks that the pressure of 12 - 16 cmH2O is comfortable (lowered from 14 18 cmH2O last year). On the CPAP therapy he notices improvement in his sleep quality, and that he wakes up feeling fresher in the morning and more awake/alert during the day. The Fate Sleepiness Scale score is 5. The average residual AHI is 2.7; and air leak, 10.9 L/min. The 90th percentile pressure is 14.2 cmH2O. His ResMed AirSense 10 is less than 3 years old. Sleep Study - Results Type of Sleep Study: Polysomnography Prior sleep studies: Yes Year and Where: 2005 - [facility] CPAP Compliance Data - Data Reviewed with Patient Average duration of nightly device use: 7HRS 54MINS Compliance rate %: 90 (12/08/22-12/07/23) Current pressure setting (cmH2O): 12-16 Average residual AHI: 2.7 Subjective Initial Fate Sleepiness Scale score: 9 (in 2018) Current Fate Sleepiness Scale score: 6 (12/13/23) Allergies and Home Medications Drug allergies reviewed: Yes Home medication list reviewed: Yes Allergy and home medication list: Allergies latex Allergy (Verified 12/09/23 08:42) Rash Review of Systems Review of systems same as previous: Yes (SOB AND FATIGUE) Physical Exam Vital signs obtained and entered by: JAD Ugarte MA Blood Pressure: 146/98 (LEFT ARM) Cuff size: regular Heart Rate: 76 O2 Saturation: 97 Height: 5 ft 8 in Weight: 216 lb 3.2 oz Body Mass Index: 32.8 BMI Classification: Obese Impression and Plan IMPRESSION: 1. Obstructive Sleep Apnea-Hypopnea Syndrome, mild, with the patient continuing to do well on nasal CPAP therapy. He has excellent compliance and significant clinical improvement. The current pressure appears effective and comfortable. Overall, he is very satisfied with treatment and plans to continue with it long-term. His recent increase in air leak is because his marlow. No adjustment is necessary today. PLAN: 1. Leave BiPAP at 12 - 16 cmH2O. 2. Try a ResMed F30 full face mask or Respironics DreamWear full face mask 3. Return in one year for follow up or earlier if there is any problem with the treatment. Counseling Topics: Weight control Follow up with Sleep Care in: 1 year Visit Type: In Office Time Spent with Patient (minutes): 15 Provider Statement: I spent 100% of the Face to Face Visit with the patient with greater than 50% spent counseling the patient and coordination of care.
== END 2023-12-13 09:36 | disposition home or self-care (01) ==
LOC: SC 09:35
PROVIDERS: ATTEND Internal Medicine Pulmonary Disease
DX: G47.33 Obstructive sleep apnea (adult) (pediatric) (principal); E66.9 Obesity, unspecified; Z68.32 Body mass index [BMI] 32.0-32.9, adult
CPT/HCPCS: 99212; G0463